=== PATIENT | female | born 1935 | race Caucasian/White ===

== ENCOUNTER 2021-06-13 18:32 | Inpatient (IN) | payer MEDICARE, MEDICAID, SELFPAY ==
[2021-06-13 18:43] VITALS: BP 173/140; PULSE 100; RESP 21; TEMP 37.6; O2SAT 91; BMI 38.5
--- NOTE | 2021-06-13 18:52 | XRR_ITS ---
PROCEDURE INFORMATION: Exam: XR Chest Exam date and time: 06/13/2021 6:52 PM Age: 85 years old Clinical indication: Dyspnea; Patient HX: SOB for 6 months TECHNIQUE: Imaging protocol: XR of the chest. Views: 1 view. COMPARISON: 1. CT abdomen pelvis wo con [id number] 05/23/2016 9:17 AM 2. CR XR KUB [id number] 08/19/2016 8:56 AM FINDINGS: Lungs: There is fine reticular and ground-glass opacity in the mid to lower lungs bilaterally. There is an 11 mm nodule in the right lower lung. The nodule corresponds to a calcified granuloma visible on the prior chest CT. Pleural spaces: There is no pleural effusion or pneumothorax. Heart/Mediastinum: There is mild enlargement of the cardiac silhouette. Bones/joints: There are healed bilateral rib fractures. XR/XR chest 1V portable [id number] IMPRESSION: 1. Bilateral pulmonary reticular and ground-glass opacity may be due to pulmonary edema, atypical infection and/or chronic interstitial lung disease. 2. Cardiac enlargement.
--- NOTE | 2021-06-13 18:53 | ECG_ITS ---
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 Measurements Intervals [place] Rate: 97 P: 142 CT: 173 QRS: -17 QRSD: 91 T: 136 QT: 298 QTc: 379 Interpretive Statements SINUS RHYTHM MODERATE T-WAVE ABNORMALITY, CONSIDER LATERAL ISCHEMIA [-0.1+ mV T-WAVE IN I/aVL/V5/V6] No previous ECG available for comparison Electronically Signed On 06-14-2021 8:50:04 CHIEF OF POLICE by Magan Jimenez M.D. [email or web address] [email or web address] [facility] center.[email or web address]/store/OM/[id number]
[2021-06-13 19:14] VITALS: PULSE 98; RESP 22; O2SAT 90
[2021-06-13] MEDS: ipratropium-albuterol 3 mL Neb INHALATION (19:14)
[2021-06-13 19:24] VITALS: PULSE 96; RESP 20; O2SAT 92
--- NOTE | 2021-06-13 19:24 | W.ED.SOB ---
HPI - SOB/Dyspnea General: Chief Complaint: Shortness of Breath/Dyspnea Stated Complaint: SOB Time Seen by Provider: 06/13/21 18:33 Source: patient History of Present Illness: HPI Narrative: 85-year-old female who [facility]. She complains of worsening shortness of breath despite oxygen and breathing treatments there. She was weak as well. She denies any significant chest pain. She has been coughing and wheezing. No fever. No diarrhea. No vomiting. She does not have any prior visits here, so no other information really available. MD elicited complaint: shortness of breath and cough Onset (ago): day(s) Context: recent illness Timing: progressively worsening Severity: moderate Exacerbating factors: lying flat and exertion Relieving factors: oxygen and bronchodilators Known history of: other (Unknown) Associated symptoms: Reports chest congestion, cough and nausea; Deny abdominal pain, chest pain, diaphoresis, dizziness, extremity pain, fever(s), hemoptysis or vomiting Treatment prior to arrival: oxygen Review of Systems Const: Denies: fever(s) or diaphoresis Eyes: Denies: blurry vision ENMT: Reports: throat pain Card: Denies: chest pain Resp: Reports: dyspnea, productive cough and chest congestion; Denies: hemoptysis GI: Reports: nausea; Denies: abdominal pain, vomiting or diarrhea : Denies: flank pain Musc: Denies: extremity pain Skin/Breast: Denies: rash Neuro: Denies: dizziness PFSH ED PFSH: Medical History (Updated 06/14/21 @ 01:18 by Ponce Sinclair DO) Chronic lymphocytic leukemia CKD stage 3 due to type 1 diabetes mellitus History of Parkinson's disease Personal history of DVT (deep vein thrombosis) Surgical History (Updated 06/13/21 @ 22:46 by Bahman Castro MD) History of hysterectomy History of thyroidectomy Family History (Updated 06/13/21 @ 22:46 by Bahman Csatro MD) Father Colon cancer Mother Stroke Social History (Updated 06/13/21 @ 22:47 by Bahman Castro MD) Smoking and tobacco status: never smoked Alcohol intake: never Substance/Drug Use: never Physical Exam Const: GENERAL APPEARANCE: cooperative, ill appearing and frail appearing NUTRITIONAL APPEARANCE: obese ORIENTATION/CONSCIOUSNESS: Yes awake, Yes oriented to person and Yes oriented to place HENMT: COMMON NORMALS: normocephalic, atraumatic and Normal external nose present HEAD & SCALP: normocephalic and atraumatic FACE & SINUS: normal facial exam NOSE: Normal external nose present and Normal nares present Eye: COMMON NORMALS: Equal, round and reactive pupils present and EOMs intact bilaterally PUPIL: Yes Equal, round and reactive pupils present Chest: COMMONS NORMALS: normal inspection of the chest Resp: EFFORT & INSPECTION: Yes tachypneic, Yes labored and Yes uses accessory muscles AUSCULTATION: wheezes Cardio: COMMON NORMALS: regular rhythm RATE: tachycardic RHYTHM: regular rhythm GI: COMMON NORMALS: Normal to inspection, nondistended, normoactive bowel sounds present and Soft to palpation INSPECTION: Yes abdominal distension PALPATION: Yes Soft to palpation Extremity: GENERAL: Yes edema (1+) Neuro: SENSORIUM/ORIENTATION: Yes oriented to person and Yes oriented to place Course Consultations: Consultation #1: aria Consultation #2: neli Vital Signs: Vital signs: Vital Signs Temperature 99.7 F H 06/13/21 18:43 Pulse Rate 96 06/13/21 19:24 Respiratory Rate 20 H 06/13/21 19:24 Blood Pressure 173/140 06/13/21 18:43 Pulse Oximetry 92 06/13/21 19:24 MDM - SOB/Dyspnea Medical Decision Making 85-year-old female with shortness of breath cough, and some lethargy. Saturations remained marginal on up to 6 L nasal cannula. She was therefore placed on high flow nasal cannula with improvement in oxygenation. Patient is a CLL history. Family member notes that white blood cell counts can run in the 60,000 range. Tonight, she has a white blood cell count of 192,000. Her creatinine is 1.7. BUN 39. She has bilateral groundglass opacities likely related to COVID-19 pneumonia, although blood cultures are pending, and she is covered with antibiotics. Her temperature here is 99.7. I spoke with oncology about the impressively high white blood cell count. They note that with a hemoglobin 11.2 and a platelet count of 173, increased white blood cell count is less of an issue. She has been treated with vancomycin and Zosyn here. With significant hypoxia, she will require admission. Lab Data : 06/13/21 19:45 06/13/21 19:45 Labs/Radiology: Radiology Impressions Chest X-Ray 06/13/21 18:52 IMPRESSION: 1. Bilateral pulmonary reticular and ground-glass opacity may be due to pulmonary edema, atypical infection and/or chronic interstitial lung disease. 2. Cardiac enlargement. Laboratory Results WBC 191.8 10^3/uL (4.0-10.0) H* 06/13/21 19:45 RBC 4.03 10^6/uL (4.1-5.3) L 06/13/21 19:45 Hgb 11.2 g/dL (11.5-15.3) L 06/13/21 19:45 Hct 39.4 % (37.0-47.0) 06/13/21 19:45 MCV 97.8 fl (81-99) 06/13/21 19:45 MCH 27.8 pg (28.0-34.0) L 06/13/21 19:45 MCHC 28.4 g/dL (30.0-36.0) L 06/13/21 19:45 RDW 17.7 % (12.1-15.1) H 06/13/21 19:45 Plt Count 173 10^3/cmm (130-400) 06/13/21 19:45 MPV 11.2 fL (7.4-10.4) H 06/13/21 19:45 Neut % (Auto) 4.5 % 06/13/21 19:45 Lymph % (Auto) 94.5 % 06/13/21 19:45 [place] % (Auto) 0.7 % 06/13/21 19:45 Eos % (Auto) 0.0 % 06/13/21 19:45 Baso % (Auto) 0.0 % 06/13/21 19:45 Neut # (Auto) 8.62 10^3/uL (1.8-7.7) H 06/13/21 19:45 Lymph # (Auto) 181.3 10^3/uL (0.8-4.8) H 06/13/21 19:45 [place] # (Auto) 1.3 10^3/uL (0.2-0.9) H 06/13/21 19:45 Eos # (Auto) 0.0 10^3/uL (0.0-0.8) 06/13/21 19:45 Baso # (Auto) 0.0 10^3/uL (0.0-0.1) 06/13/21: Nucleated RBC % (auto) 0 % 06/13/21: Nucleated RBCs # 0.0 /100WBC 06/13/21: D-Dimer 2.87 ug/mIFEU (0-0.59) H 06/13/21: Specimen Type Arterial 06/13/21: Sample Site Radial, left 06/13/21: ABG pH 7.48 (7.35-7.45) H 06/13/21: ABG pCO2 38.5 mmHg (35-45) 06/13/21 ABG pO2 50.8 mmHg (80.0-100.0) L 06/13/21: ABG HCO3 28.5 mmol/L (22-26) H 06/13/21: ABG Base Excess 4.7 mmol/L (-2.0-2.0) H 06/13/21: Jose De Jesus Test N/a 06/13/21: Hematocrit 33.9 % (37-47) L 06/13/21: Hgb O2 Saturation 89.6 % (95-100) L 06/13/21: Carboxyhemoglobin 0.9 %THgb (0.4-20.1) 06/13/21: Methemoglobin < 0.0 % (0.4-1.5) L 06/13/21: Total Hemoglobin 11.1 g/dL (12-16) L 06/13/21: O2 Delivery Device Nc 06/13/21: O2 Liters/Min 5.0 % 06/13/21: Case Operator ID [email or web address] 06/13/21 19: Sodium 135 mmol/L (136-145) L 06/13/21: Potassium 4.4 mmol/L (3.5-5.1) 06/13/21: Chloride 96 mmol/L (98-107) L 06/13/21: Carbon Dioxide 23 mmol/L (22-29) 02/13/22 19:45 Anion Gap 20.4 (5-19) H 06/13/21 19:45 BUN 39 mg/dL (8-23) H 06/13/21 19:45 Creatinine 1.7 mg/dL (0.5-0.9) H 06/13/21 19:45 GFR Calculation Not Reportable 06/13/21 19:45 Glucose 117 mg/dL (65-115) H 06/13/21 19:45 Calculated Osmolality 290 mOsm/kg (285-295) 06/13/21 19:45 Lactic Acid 1.3 mmol/L (0.5-2.2) 06/13/21 19:45 Calcium 8.1 mg/dL (8.5-10.5) L 06/13/21 19:45 Total Bilirubin 0.4 mg/dL (0.15-1.2) 06/13/21 19:45 AST 66 U/L (0-32) H 06/13/21 19:45 ALT 15 U/L (0-33) 06/13/21 19:45 Alkaline Phosphatase 87 IU/L (35-105) 06/13/21 19:45 Creatine Kinase 138 U/L (26-192) 06/13/21 19:45 Troponin T Baseline 51 ng/L (0-10) H 06/13/21 19:45 Troponin T 120 Minute 49.88 ng/L (0-10) H 06/13/21 21:49 Delta Troponin T -1.12 ABS# (0-10) L 06/13/21 21:49 C-Reactive Protein 145.3 mg/L (0.0-4.9) H 06/13/21 19:45 NT-Pro-B Natriuret Pep 826 pg/mL (0-450) H 06/13/21 19:45 Total Protein 5.2 g/dL (6.6-8.7) L 06/13/21 19:45 Albumin 3.6 g/dL (3.5-5.2) 06/13/21 19:45 Globulin 1.6 g/dL (1.3-4.6) 06/13/21 19:45 Procalcitonin 0.26 ng/mL (0-0.5) 06/13/21 19:45 Critical Care Time Critical Care Time: Critical Care Time: Yes Total Critical Care Time: 36 Attestation: This case had a high probability of a clinically significant, sudden, or life threatening deterioration of this patient's condition which required my full and direct attention, intervention and personal management. This is independent of any procedures performed. Discharge Plan Discharge Patient Disposition: Admitted As Inpatient Admit Provider: Bahman Castro Clinical Impression: Acute kidney injury superimposed on CKD, Pneumonia due to COVID-19 virus, Leukocytosis Condition: Stable Coding Level of Care Code ED Sports Marketing Coordinator for Chg Fwd Exam Comprehensive
[2021-06-13 19:40] LABS: ABG PCO2 38.5 mmHg (35-45); ABG PH Result 7.48 (7.35-7.45); Arterial Blood Gas Hematocrit 33.9 % (37-47); Base Excess ABG 4.7 mmol/L (-2.0-2.0); Blood Gas Sample Site Radial, left; Blood Gas Sample Type Arterial; Carboxyhemoglobin 0.9 %THgb (0.4-20.1); HCO3 ABG 28.5 mmol/L (22-26); HGB O2 Sat 89.6 % (95-100); Methemoglobin < 0.0 % (0.4-1.5); Oxygen Device NC; PO2 ABG 50.8 mmHg (80.0-100.0); Total Hemoglobin 11.1 g/dL (12-16)
[2021-06-13 20:00] LABS: Hematocrit 39.4 % (37.0-47.0); Hemoglobin 11.2 g/dL (11.5-15.3); Lymphocytes % 94.5 %; Mean Corpuscular HGB Conc 28.4 g/dL (30.0-36.0); Mean Corpuscular Hemoglobin 27.8 pg (28.0-34.0); Mean Corpuscular Volume 97.8 fl (81-99); Mean Platelet Volume 11.2 fL (7.4-10.4); Monocytes # 1.3 10^3/uL (0.2-0.9); Monocytes % 0.7 %; Neutrophils # 8.62 10^3/uL (1.8-7.7); Neutrophils % 4.5 %; Nucleated Red Blood Cells % 0 %; Platelet Count 173 10^3/cmm (130-400); Red Blood Count 4.03 10^6/uL (4.1-5.3); Red Cell Distribution Width 17.7 % (12.1-15.1)
[2021-06-13 20:13] LABS: D Dimer 2.87 ug/mIFEU (0-0.59)
[2021-06-13 20:18] LABS: Troponin(5th) Baseline 51 ng/L (0-10)
[2021-06-13 20:19] LABS: Lactic Sepsis W/Reflex 1.3 mmol/L (0.5-2.2)
[2021-06-13 20:28] LABS: NT Pro B Type Natriuretic Pept 826 pg/mL (0-450); Procalcitonin 0.26 ng/mL (0-0.5)
[2021-06-13 20:29] LABS: Lymphocytes # 181.3 10^3/uL (0.8-4.8)
[2021-06-13 20:31] LABS: White Blood Count 191.8 10^3/uL (4.0-10.0)
[2021-06-13 20:39] LABS: Alanine Aminotransferase 15 U/L (0-33); Albumin Level 3.6 g/dL (3.5-5.2); Alkaline Phosphatase 87 IU/L (35-105); Anion Gap 20.4 (5-19); Aspartate Amino Transferase 66 U/L (0-32); Blood Urea Nitrogen 39 mg/dL (8-23); C Reactive Protein 145.3 mg/L (0.0-4.9); Calcium 8.1 mg/dL (8.5-10.5); Carbon Dioxide 23 mmol/L (22-29); Chloride 96 mmol/L (98-107); Globulin 1.6 g/dL (1.3-4.6); Glucose 117 mg/dL (65-115); Osmolality Calculated 290 mOsm/kg (285-295); Potassium 4.4 mmol/L (3.5-5.1); Sodium 135 mmol/L (136-145); Total Bilirubin 0.4 mg/dL (0.15-1.2); Total Protein 5.2 g/dL (6.6-8.7)
[2021-06-13 20:49] LABS: Slide Review Slide Review Perform
--- NOTE | 2021-06-13 20:53 | ECG_ITS ---
[facility] Test Date: 2021-06-13 Pat Name: Haritha Shelton Department: Room: Gender: Female Sales Person: : 1935 Requested By: Ponce Leigh Order Number: [id number] Thad MD: Magan Jimenez M.D. Measurements Intervals [place] Rate: 95 P: 46 VT: 165 QRS: -14 QRSD: 93 T: 58 QT: 312 QTc: 393 Interpretive Statements SINUS RHYTHM MINIMAL VOLTAGE CRITERIA FOR LVH, CONSIDER NORMAL VARIANT [MEETS CRITERIA IN ONE OF: R(aVL), S(V1), R(V5), R(V5/V6)+S(V1)] Compared to ECG 06/13/2021 19:07:57 T-wave abnormality no longer present Possible ischemia no longer present Electronically Signed On 06-14-2021 9:01:00 DOCUMENTATION LEAD by Magan Jimenez M.D. [id number]
[2021-06-13] MEDS: piperacillin-tazobactam 4.5 GM in sodium chloride 0.9% (plus) 50 ML IV (21:52)
[2021-06-13 22:12] LABS: Troponin 5 2HR 49.88 ng/L (0-10)
[2021-06-13 22:15] LABS: Troponin 5 2HR Delta -1.12 ABS# (0-10)
[2021-06-13] MEDS: vancomycin 1,000 MG in sodium chloride 0.9% 250 ML 250 MG IV (22:28)
--- NOTE | 2021-06-13 22:42 | P.HP_ITS ---
Providers/Chief Complaint Primary Care Provider: TREVOR Provider Chief Complaint: SOB History of Present Illness Haritha Shelton is a 85 year old female with a past medical history of chronic lymphocytic leukemia, Parkinson's disease, CKD stage III, history of DVT and PE, history of hypothyroidism, age-related macular degeneration, who presents to [facility] due to shortness of breath, fevers, fatigue, malaise. Patient tells me that she tested positive for Covid last , at [facility], she progressively has been experiencing increasing shortness of breath, they have been trying steroids as outpatient, increasing fatigue, malaise, this morning she experience increasing worsening shortness of breath, shortness of breath with exertion, productive cough, fevers as high as 101, loss of taste, no chest pain, no palpitations, Review of Systems Const: Reports: fever(s), chills, fatigue and malaise ENMT: Denies: nasal congestion Card: Reports: lightheadedness; Denies: chest pain, palpitations or edema Resp: Reports: dyspnea and productive cough; Denies: non-productive cough or wheezing GI: Denies: abdominal pain, nausea, vomiting, hematemesis, diarrhea, constipation, hematochezia or melena : Denies: flank pain, dysuria or urinary frequency Skin/Breast: Denies: rash Neuro: Denies: dizziness Psych: Denies: anxiety or depression Endo: Denies: polyuria Medications/Allergies Allergies Allergy/AdvReac Type Severity Reaction Status Date / Time hydrocodone Allergy ADR-Itching Verified 06/13/21 20:03 PFSH Acute PFSH: Medical History (Updated 06/13/21 @ 22:48 by Bahman Castro MD) Chronic lymphocytic leukemia CKD stage 3 due to type 1 diabetes mellitus History of Parkinson's disease Personal history of DVT (deep vein thrombosis) Surgical History (Updated 06/13/21 @ 22:46 by Bahman Castro MD) History of hysterectomy History of thyroidectomy Family History (Updated 06/13/21 @ 22:46 by Bahman Castro MD) Father Colon cancer Mother Stroke Social History (Updated 06/13/21 @ 22:47 by Bahman Castro MD) Smoking and tobacco status: never smoked Alcohol intake: never Substance/Drug Use: never Vitals/I&O/Wt Last Vital Signs Temp 99.7 F H 06/13/21 18:43 Pulse 96 06/13/21 19:24 Resp 20 H 06/13/21 19:24 BP 173/140 06/13/21 18:43 Pulse Ox 92 06/13/21 19:24 06/13/21 06/13/21 06/13/21 06:59 14:59 22:59 Intake Total 50 / 50 Balance 50 / 50 Weight last 48 hrs Weight 108.409 kg Physical Exam Const: COMMON NORMALS: no acute distress and patient oriented x3 HENMT: COMMON NORMALS: normocephalic HEAD & SCALP: normocephalic Neck/C-Spine: COMMON NORMALS: no JVD Resp: COMMON NORMALS: normal respiratory effort, No retractions, No use of accessory muscles and clear to auscultation bilaterally AUSCULTATION: clear to auscultation bilaterally Cardio: COMMON NORMALS: no JVD, regular rate, regular rhythm, S1 normal heart sound present and S2 normal heart sound present RATE: regular rate RHYTHM: regular rhythm HEART SOUNDS: S1 normal heart sound present and S2 normal heart sound present GI: COMMON NORMALS: Normal to inspection, nondistended, normoactive bowel sounds present, Soft to palpation, non-tender, No hepatosplenomegaly present, no masses and no bruits PALPATION: Yes Soft to palpation and Yes No hepatosplenomegaly present Extremity: COMMON NORMALS: capillary refill normal, no clubbing, cyanosis or edema, no calf tenderness and no pedal edema Neuro: COMMON NORMALS: patient oriented x3 Psych: COMMON NORMALS: mental status grossly normal Data : 06/13/21 19:45 06/13/21 19:45 Micro: Microbiology 06/13/21 19:45 Blood Culture - Preliminary Blood SPECIMEN COLLECTED 06/13/21 19:45 Blood Culture - Preliminary Blood SPECIMEN COLLECTED A&P Assessment and plan (1) Pneumonia due to COVID-19 virus: Status: Acute (2) Leukocytosis: Status: Acute (3) Acute kidney injury superimposed on CKD: Status: Acute (4) NSTEMI (non-ST elevated myocardial infarction): Status: Acute Plan COVID-19 pneumonia -Sputum cultures, blood cultures, urine bacterial antigens -Monitor respiratory status, on 5 L -Remdesivir day 1 of 5, GFR roughly 30, monitor -Decadron day 1 of 5 -Vitamin C, zinc, vitamin D - ipratropium, budesonide -D-dimer elevated, has a personal history of DVTs and PEs, cannot do CT angiogram given elevated creatinine of 1.7, will do venous ultrasound for DVT, start heparin drip -Chest x-ray shows bilateral pulmonary reticular and groundglass opacities, does have elevated leukocytosis, likely secondary to CLL, will start broad-spectrum antibiotic therapy vancomycin, Zosyn -Incentive spirometer, flutter valve -Full code -Heparin drip for DVT prophylaxis Leukocytosis -WBC 191.18, 05/13/2021 white blood cell count was 107.6 -Has been on multiple rounds of steroids -Neutrophilic, and monocytosis, but primarily lymphocytosis -Likely secondary to underlying CLL -However certainly there is a possibility of underlying leukostasis and associa josseline pulmonary edema -COVID-19 certainly makes diagnosis difficult, in addition would make treatment difficult -ER physician spoke to Dr. Aguillon, advised currently no treatment necessary as hemoglobin and platelet count are within normal limits -We will continue to monitor CBC, monitor for symptomatology Parkinson's disease, continue home Sinemet Hypothyroidism, continue home levothyroxine ROSE on CKD, baseline creatinine unknown, creatinine 1.7, monitor for now Elevated troponins, likely secondary to COVID-19 pneumonia, monitor, telemetry monitoring - Attestations Medical Necessity Statement*: Patient requires hospitalization for COVID-19 pneumonia, inpatient, greater than 2 midnights Coding Level of Care Code Acute Mucker [place] for [facility] Diagnoses Pneumonia due to COVID-19 virus U07.1; J12.82 Leukocytosis D72.829 Acute kidney injury superimposed on CKD N17.9; N18.9 NSTEMI (non-ST elevated myocardial infarction) I21.4
[2021-06-13 22:56] LABS: Creatine Phosphokinase 138 U/L (26-192)
[2021-06-14] VITALS (15 sets, daily range): BP systolic 137–175; BP diastolic 59–77; PULSE 72–95; RESP 18–28; TEMP 36.6–37.1; O2SAT 88–97
--- NOTE | 2021-06-14 00:53 | ECG_ITS ---
[facility] Test Date: 2021-06-14 Pat Name: Haritha Shelton Department: Room: 252 Gender: Female Anesthesia Tech: : 1935 Requested By: Ponce Leigh Order Number: [id number] Thad MD: Magan Jimenez M.D. Measurements Intervals [place] Rate: 80 P: 56 [place]: 170 QRS: -8 QRSD: 93 T: 46 QT: 351 QTc: 405 Interpretive Statements SINUS RHYTHM MINIMAL VOLTAGE CRITERIA FOR LVH, CONSIDER NORMAL VARIANT [MEETS CRITERIA IN ONE OF: R(aVL), S(V1), R(V5), R(V5/V6)+S(V1)] Compared to ECG 06/13/2021 21:09:28 No significant changes Electronically Signed On 06-14-2021 8:56:47 FURNACE PACKER by Magan Jimenez M.D. [id number]
--- NOTE | 2021-06-14 00:56 | USCV_ITS ---
Haritha Shelton Age: 85 Gender: F : 1935 Exam Date: 06/14/2021 06:48 Ordering Phys: Bahman Castro MD Technologist: [place] [facility] [place]: ? DVT HISTORY: BED stasis. PROCEDURES: Bilaterally, the common femoral, superficial femoral, profunda femoral, popliteal, posterior tibial, greater saphenous veins, and the peroneal trunk were identified and interrogated in the standard fashion. These veins were found to be easily compressible with spontaneous blood flow. FINDINGS: Normal 2-D Doppler and augmentation and compressibility throughout the lower extremity venous structures. Additional imaging through the proximal calf veins also reveals no thrombus. Limited evaluation of the greater saphenous vein is patent with no thrombus. CONCLUSIONS No DVT bilateral lower extremities. Dr. Tere Crawford DO (Electronically Signed) Final Date: 14 June 2021 10:18 S
[2021-06-14 02:21] LABS: Troponin 5 6HR 39.47 ng/L (0-10)
--- NOTE | 2021-06-14 02:25 | PC.PHAR ---
Pharmacokinetic dosing service Date: 06/14/21 Time: 020 Objective: Patient: Haritha Shelton Floor: 252-2 Age: 85 yo Serum creatinine: 1.7 mg/dL Height: 64.8 Inches Weight (kg): 108.409 Diagnosis: Relevant medical/social history: Cultures and sensitivities: Other labs: Assessment: IBW (kg): 56.54 Dosing wt(kg): 108.409 Estimated Creatinine clearance (ml/min): 21.6 CRCL method: Cockcroft and Gault using ibw(default). Drug selected: Vancomycin Loading dose (mg): 0 Vd (liters): 97.6 (factor used: 0.9 L/kg) Minh (hr-1): 0.022 Half life (hrs): 31.51 Recommended dose: 1500 mg Interval: 36 hrs Infusion time (hrs): 1.5 Predicted peak (mcg/mL): 27.6 Predicted trough (mcg/mL): 12.92 Total body weight is being used for vancomycin dosing. Renal function is stable [ ] /unstable [ ] Recommendations: Give Vancomycin 1500 mg q 36 hrs with an expected Cpeak of 27.6 mcg/ml and an expected Ctrough of 12.92 mcg/ml Renal dosing of other antibiotics (review renal dosing of other medications and list guidelines here): Thank you for the consult, will continue to follow. Signature: Светлана Vázquez [facility]
[2021-06-14] MEDS: remdesivir 200 MG in sodium chloride 0.9% (100 ml) 60 ML 100 MG IV (03:05)
[2021-06-14 03:23] LABS: Basophils # 0.1 10^3/uL (0.0-0.1); Basophils % 0.1 %; Hematocrit 35.3 % (37.0-47.0); Hemoglobin 10.4 g/dL (11.5-15.3); Lymphocytes % 93.6 %; Mean Corpuscular HGB Conc 29.5 g/dL (30.0-36.0); Mean Corpuscular Hemoglobin 28.7 pg (28.0-34.0); Mean Corpuscular Volume 97.2 fl (81-99); Mean Platelet Volume 10.7 fL (7.4-10.4); Monocytes # 1.1 10^3/uL (0.2-0.9); Monocytes % 0.8 %; Neutrophils # 8.13 10^3/uL (1.8-7.7); Neutrophils % 5.2 %; Nucleated Red Blood Cells % 0 %; Platelet Count 155 10^3/cmm (130-400); Red Blood Count 3.63 10^6/uL (4.1-5.3); Red Cell Distribution Width 17.2 % (12.1-15.1)
[2021-06-14 03:31] LABS: INR 1.13 (0.8-1.2)
[2021-06-14 03:32] LABS: Partial Thromboplastin Time 26.8 SECONDS (23.9-36.7)
[2021-06-14 03:34] LABS: D Dimer 2.39 ug/mIFEU (0-0.59)
[2021-06-14 03:47] LABS: NT Pro B Type Natriuretic Pept 601 pg/mL (0-450); Procalcitonin 0.22 ng/mL (0-0.5)
[2021-06-14 03:56] LABS: Alanine Aminotransferase 10 U/L (0-33); Albumin Level 3.3 g/dL (3.5-5.2); Alkaline Phosphatase 77 IU/L (35-105); Aspartate Amino Transferase 46 U/L (0-32); Blood Urea Nitrogen 37 mg/dL (8-23); Carbon Dioxide 25 mmol/L (22-29); Chloride 98 mmol/L (98-107); Globulin 1.4 g/dL (1.3-4.6); Glucose 202 mg/dL (65-115); Magnesium 2.2 mg/dL (1.7-2.3); Osmolality Calculated 292 mOsm/kg (285-295); Phosphorus 2.6 mg/dL (2.5-4.5); Sodium 134 mmol/L (136-145); Total Bilirubin 0.4 mg/dL (0.15-1.2); Total Protein 4.7 g/dL (6.6-8.7)
[2021-06-14 03:58] LABS: Creatine Phosphokinase 90 U/L (26-192)
[2021-06-14 04:05] LABS: Anion Gap 15.4 (5-19); Potassium 4.4 mmol/L (3.5-5.1)
[2021-06-14 04:10] LABS: Lymphocytes # 141.4 10^3/uL (0.8-4.8); White Blood Count 151.1 10^3/uL (4.0-10.0)
[2021-06-14 04:11] LABS: Slide Review Slide Review Perform
--- NOTE | 2021-06-14 04:20 | PC.NURSE ---
Called critical WBC to Dr. Hinton-no new orders at this time as result has improved and is expected. Also discussed heparin dosing and baseline PTT of 26.8 New order do not give heparin bolus just start infusion at 30ml/hr and recheck PTT in 6 hours.
[2021-06-14] MEDS: heparin drip 25,000 UNIT/500 ML PREMIX 30.36 UNIT IV (04:26)
[2021-06-14] MEDS: levothyroxine 100 mcg Tablet PO (05:36)
[2021-06-14] MEDS: piperacillin-tazobactam 3.375 GM in sodium chloride 0.9% (plus) 100 ML IV ×3 (05:37→21:27)
[2021-06-14 06:35] LABS: Influenza A by IFA Negative (Negative); Influenza B by IFA Negative (Negative)
[2021-06-14 07:56] LABS: Adenovirus Not Detected (NOT DETECT); Chlamydia Pneumoniae Not Detected (NOT DETECT); Coronavirus 229E,HKU1,NL63,OC4 Not Detected (NOT DETECT); Human Metapneumovirus Not Detected (NOT DETECT); Human Rhinovirus/Enterovirus Not Detected (NOT DETECT); Influenza A Not Detected (NOT DETECT); Influenza A H1 Not Detected (NOT DETECT); Influenza A H1-2009 Not Detected (NOT DETECT); Influenza A H3 Not Detected (NOT DETECT); Influenza B Not Detected (NOT DETECT); Mycoplasma Pneumoniae Not Detected (NOT DETECT); Parainfluenza Virus Type 1 Not Detected (NOT DETECT); Parainfluenza Virus Type 2 Not Detected (NOT DETECT); Parainfluenza Virus Type 3 Not Detected (NOT DETECT); Parainfluenza Virus Type 4 Not Detected (NOT DETECT); Respiratory Syncytial Virus A Not Detected (NOT DETECT); Respiratory Syncytial Virus B Not Detected (NOT DETECT); SARS-COV-2 Detected (NOT DETECT)
[2021-06-14] MEDS: ipratropium-albuterol 3 mL Neb INHALATION ×4 (08:06→19:41)
[2021-06-14] MEDS: budesonide 0.5 mg/2 mL Neb INHALATION ×2 (08:06→19:41)
[2021-06-14] MEDS: gabapentin 100 mg Capsule 200 MG PO ×3 (09:49→21:18)
[2021-06-14] MEDS: zinc gluconate 50 mg Tablet PO (09:49)
[2021-06-14] MEDS: carbidopa-levodopa ER 50-200mg Tablet 1 EACH PO ×2 (09:49→17:50)
[2021-06-14] MEDS: ascorbic acid 500 mg Tablet PO ×2 (09:50→17:50)
[2021-06-14] MEDS: famotidine 20 mg Tablet PO ×2 (09:50→17:50)
[2021-06-14] MEDS: dexamethasone 10 mg/mL INJ 6 MG IVP (09:50)
--- NOTE | 2021-06-14 10:09 | PM.PN ---
Subjective Subjective: Patient was seen and examined this morning, says that her fatigue has improved, her other vitals and labs have been reviewed. Medications: Medication Review Details: Generic Name Dose Route Start Last Admin Trade Name Liya PRN Reason Stop Dose Admin Albuterol/Ipratrop ium 3 ml 06/14/21 08:00 06/14/21 08:06 Ipratropium-Albu terol 3 Ml Neb INHALATION 3 ml QID.RESPIRATORY S CH Administration Ascorbic Acid 500 mg 06/14/21 09:00 06/14/21 09:50 Ascorbic Acid 50 0 Mg Tablet PO 500 mg BID TREVOR Administration Budesonide 0.5 mg 06/14/21 08:00 06/14/21 08:06 Budesonide 0.5 M g/2 Ml Neb INHALATION 0.5 mg BID.RESPIRATORY S CH Administration Carbidopa/Levodopa 1 each 06/14/21 09:00 06/14/21 09:49 Carbidopa-Levodo pa Er 50-200mg Tab let PO 1 each BID TREVOR Administration Dexamethasone 6 mg 06/14/21 08:00 06/14/21 09:50 Dexamethasone 10 Mg/Ml Inj IVP 6 mg Q24H TREVOR Administration Famotidine 20 mg 06/14/21 09:00 06/14/21 09:50 Famotidine 20 Mg Tablet PO 20 mg BID TREVOR Administration Gabapentin 200 mg 06/14/21 09:00 06/14/21 09:49 Gabapentin 100 M g Capsule PO 200 mg TID TREVOR Administration Piperacillin Sod/T azobactam 100 mls @ 25 mls/ hr 06/14/21 06:00 06/14/21 05:37 Sod 3.375 gm/ So dium Chloride IV 12.5 mls/hr Q8H TREVOR Administration Protocol Levothyroxine Sodi um 100 mcg 06/14/21 06:00 06/14/21 05:36 Levothyroxine 10 0 Mcg Tablet PO 100 mcg QAM TREVOR Administration Vitamin D 1,000 unit 06/14/21 09:00 06/14/21 09:51 Cholecalciferol (Vitamin D3) 1,000 Unit Tablet PO Not Given DAILY TREVOR Zinc Gluconate 50 mg 06/14/21 09:00 06/14/21 09:49 Zinc Gluconate 5 0 Mg Tablet PO 50 mg DAILY TREVOR Administration Vitals/I&O/Wt Last Vital Signs Temp 98.1 F 06/14/21 08:00 Pulse 78 06/14/21 08:25 Resp 22 H 06/14/21 08:06 BP 175/73 06/14/21 08:00 Pulse Ox 91 06/14/21 08:06 06/13/21 06/14/21 06/14/21 22:59 06:59 14:59 Intake Total 50 / 50 760 / 810 Balance 50 / 50 760 / 810 Weight last 48 hrs Weight 108.409 kg Physical Exam Const: COMMON NORMALS: patient oriented x3 HENMT: COMMON NORMALS: normocephalic, atraumatic, hearing grossly normal bilaterally and external ears normal HEAD & SCALP: normocephalic and atraumatic EXTERNAL EAR: Yes external ears normal Eye: COMMON NORMALS: no scleral icterus GENERAL EYE: appearance normal, both eyes and all related structures Chest: COMMONS NORMALS: normal inspection of the chest and normal palpation of entire chest wall CHEST: Yes Symmetrical chest wall rise Resp: EFFORT & INSPECTION: Yes symmetric chest movement OTHER: B/L Expiratory whezzing Cardio: COMMON NORMALS: regular rate, regular rhythm, S1 normal heart sound present, S2 normal heart sound present, No gallops present (Cardio), No murmurs present (Cardio), No rub (Cardio) and Peripheral pulses 2+ throughout RATE: regular rate RHYTHM: regular rhythm HEART SOUNDS: S1 normal heart sound present and S2 normal heart sound present PERIPHERAL PULSES: Peripheral pulses 2+ throughout GI: COMMON NORMALS: Normal to inspection, nondistended, normoactive bowel sounds present, Soft to palpation, non-tender, No hepatosplenomegaly present and no masses AUSCULTATION: Yes normoactive bowel sounds PALPATION: Yes Soft to palpation and Yes No hepatosplenomegaly present RECTAL EXAM: deferred Extremity: COMMON NORMALS: no clubbing, cyanosis or edema and no pedal edema Neuro: COMMON NORMALS: patient oriented x3 Data : 06/14/21 03:10 06/14/21 03:10 Micro: Microbiology 06/13/21 19:45 Blood Culture - Preliminary Blood SPECIMEN COLLECTED 06/13/21 19:45 Blood Culture - Preliminary Blood SPECIMEN COLLECTED A&P Assessment and plan (1) Pneumonia due to COVID-19 virus: Status: Acute (2) Leukocytosis: Status: Acute (3) Acute kidney injury superimposed on CKD: Status: Acute (4) NSTEMI (non-ST elevated myocardial infarction): Status: Acute Plan COVID-19 pneumonia -Sputum cultures, blood cultures, urine bacterial antigens -Monitor respiratory status, on 5 L -Remdesivir day 1 of 5, GFR roughly 30, monitor -Decadron day 1 of 5 -Vitamin C, zinc, vitamin D - ipratropium, budesonide -D-dimer elevated, has a personal history of DVTs and PEs, cannot do CT angiogram given elevated creatinine of 1.7, will do venous ultrasound for DVT, -On Therapeutic Lovenox -Chest x-ray shows bilateral pulmonary reticular and groundglass opacities, does have elevated leukocytosis, likely secondary to CLL, will start broad-spectrum antibiotic therapy vancomycin, Zosyn -Incentive spirometer, flutter valve -On therapeutic Lovenox Leukocytosis -WBC 191.18, 05/13/2021 white blood cell count was 107.6 -Has been on multiple rounds of steroids -Neutrophilic, and monocytosis, but primarily lymphocytosis -Likely secondary to underlying CLL -However certainly there is a possibility of underlying leukostasis and associated pulmonary edema -COVID-19 certainly makes diagnosis difficult, in addition would make treatment difficult -ER physician spoke to Dr. Aguillon, advised currently no treatment necessary as hemoglobin and platelet count are within normal limits -We will continue to monitor CBC, monitor for symptomatology Parkinson's disease, continue home Sinemet Hypothyroidism, continue home levothyroxine ROSE on CKD, baseline creatinine unknown, creatinine 1.7, monitor for now Elevated troponins, likely secondary to COVID-19 pneumonia, monitor, telemetry monitoring - Attestations Medical Necessity Statement*: Patient is to be in hospital for management of Covid pneumonia. Time Spent in Patient Care: Greater than 35 minutes (>than 50% of time spent in counselling and/or direct pt care on unit). 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
[2021-06-14] MEDS: enoxaparin 120 mg/0.8 mL Syringe 110 MG SUBCUT ×2 (11:47→22:31)
[2021-06-14] MEDS: remdesivir 100 MG in sodium chloride 0.9% (100 ml) 80 ML IV (18:42)
[2021-06-14] MEDS: vancomycin 1,500 MG/300 ML PIGGYBACK 200 MG IV (21:18)
[2021-06-15] VITALS (15 sets, daily range): BP systolic 118–160; BP diastolic 58–78; PULSE 69–95; RESP 18–30; TEMP 36.4–38.4; O2SAT 89–98
[2021-06-15] MEDS: benzonatate 100 mg Capsule PO (01:22)
[2021-06-15] MEDS: FUROsemide 10 mg/mL SDV 4mL 40 MG IVP ×2 (03:15→13:38)
--- NOTE | 2021-06-15 03:56 | PC.RESP ---
Paged STAT to bedside, pt in moderate resp distress; MD notified/orderobtained/NIV initiated. Pt on AVAPS r18, 600 vt, p10, PSV 20-30, Fio2 100%, SAO2 93%. RN and MD @ bedside.
--- NOTE | 2021-06-15 04:32 | PC.NURSE ---
Addendum entered by Danyelle Campbell LPN 06/15/21 04:41: Event took place at [phone]. Original Note: This nurse was called to the room by patient [id number] due to concerns with the patient's breathing. Patient had been coughing and trying to clear sputum. Patient was suctioned. Patient seemed to have an increased workload while breathing. Respiratory was called to evaluate the patient and give a breathing treatment. Patient's lungs sounded wet and slightly restricted. VS signs were obtained, T 100.4 axillary, HR 109, RR 32-34, BP 160/61, O2 89-90% saturation after being increased to 50L at 80%FiO2. Dr. Arrington was notified, orders were put in and elizondo catheter was placed. Respiratory placed patient on BiPap.
[2021-06-15] MEDS: piperacillin-tazobactam 3.375 GM in sodium chloride 0.9% (plus) 100 ML IV ×3 (05:45→22:15)
[2021-06-15 06:42] LABS: Hematocrit 42.3 % (37.0-47.0); Hemoglobin 11.9 g/dL (11.5-15.3); Lymphocytes % 94.5 %; Mean Corpuscular HGB Conc 28.1 g/dL (30.0-36.0); Mean Corpuscular Hemoglobin 28.3 pg (28.0-34.0); Mean Corpuscular Volume 100.5 fl (81-99); Mean Platelet Volume 10.6 fL (7.4-10.4); Monocytes # 0.5 10^3/uL (0.2-0.9); Monocytes % 0.3 %; Neutrophils # 9.27 10^3/uL (1.8-7.7); Neutrophils % 4.9 %; Nucleated Red Blood Cells % 0 %; Platelet Count 178 10^3/cmm (130-400); Red Blood Count 4.21 10^6/uL (4.1-5.3); Red Cell Distribution Width 18.8 % (12.1-15.1)
[2021-06-15 06:53] LABS: INR 1.26 (0.8-1.2)
[2021-06-15 07:10] LABS: NT Pro B Type Natriuretic Pept 1152 pg/mL (0-450); Procalcitonin 0.21 ng/mL (0-0.5)
[2021-06-15 07:20] LABS: D Dimer 2.03 ug/mIFEU (0-0.59)
[2021-06-15 07:21] LABS: Alanine Aminotransferase 12 U/L (0-33); Alkaline Phosphatase 74 IU/L (35-105); Aspartate Amino Transferase 39 U/L (0-32); Blood Urea Nitrogen 36 mg/dL (8-23); Calcium 9.3 mg/dL (8.5-10.5); Carbon Dioxide 23 mmol/L (22-29); Chloride 99 mmol/L (98-107); Creatine Phosphokinase 76 U/L (26-192); Globulin 2.8 g/dL (1.3-4.6); Glucose 98 mg/dL (65-115); Magnesium 2.3 mg/dL (1.7-2.3); Osmolality Calculated 288 mOsm/kg (285-295); Phosphorus 2.1 mg/dL (2.5-4.5); Sodium 135 mmol/L (136-145); Total Bilirubin 0.5 mg/dL (0.15-1.2); Total Protein 5.8 g/dL (6.6-8.7)
[2021-06-15 07:29] LABS: Anion Gap 17.4 (5-19); Potassium 4.4 mmol/L (3.5-5.1)
--- NOTE | 2021-06-15 07:30 | XRR_ITS ---
PROCEDURE INFORMATION: Exam: XR Chest Exam date and time: 06/15/2021 7:30 AM Age: 85 years old Clinical indication: Condition or disease; Lung condition and disease; Pneumonia; Additional info: Pna TECHNIQUE: Imaging protocol: XR of the chest. Views: 1 view. COMPARISON: CR (CHEST, ) 06/13/2021 7:03 PM FINDINGS: Lungs: COPD, interstitial disease, chronic granulomatous disease, and worsening bilateral airspace disease. Pleural spaces: Right pleural thickening and/or small effusion. Heart/Mediastinum: Cardiac silhouette upper limits of normal in size. Vasculature: Calcification of the thoracic aorta. Bones/joints: Osteopenia, degenerative change, and old rib fractures. XR/XR chest 1V portable [id number] IMPRESSION: COPD, interstitial disease, chronic granulomatous disease, and worsening bilateral airspace disease.
[2021-06-15 07:52] LABS: Slide Review Slide Review Perform
[2021-06-15 07:53] LABS: White Blood Count 186.3 10^3/uL (4.0-10.0)
--- NOTE | 2021-06-15 08:11 | PC.NURSE ---
Notifed Dr. Walsh of critical WBC 186.3.
[2021-06-15] MEDS: ipratropium-albuterol 3 mL Neb INHALATION ×4 (08:18→19:51)
[2021-06-15] MEDS: budesonide 0.5 mg/2 mL Neb INHALATION ×2 (08:18→19:51)
[2021-06-15] MEDS: dexamethasone 10 mg/mL INJ 6 MG IVP (08:28)
[2021-06-15] MEDS: gabapentin 100 mg Capsule 200 MG PO ×2 (08:29→16:35)
[2021-06-15] MEDS: carbidopa-levodopa ER 50-200mg Tablet 1 EACH PO ×2 (08:29→18:05)
[2021-06-15] MEDS: cholecalciferol (vitamin D3) 1,000 unit Tablet 1000 UNIT PO (08:29)
[2021-06-15] MEDS: ascorbic acid 500 mg Tablet PO ×2 (08:29→18:04)
[2021-06-15] MEDS: zinc gluconate 50 mg Tablet PO (08:29)
[2021-06-15] MEDS: famotidine 20 mg Tablet PO ×2 (08:29→18:04)
[2021-06-15] MEDS: enoxaparin 120 mg/0.8 mL Syringe 110 MG SUBCUT ×2 (13:39→22:16)
--- NOTE | 2021-06-15 16:28 | P.PN_ITS ---
Subjective Subjective: Patient was seen and examined this morning, she had a rough last night, requiring her to be placed on BiPAP. Since the morning she has been on heated high flow 50% FiO2 35 L/min and maintaining saturation above 90, she is also having fevers, noted T-max: 101.1. AM Chest x-ray has shown worsening of bilateral infiltrates. Medications: Medication Review Details: Generic Name Dose Route Start Last Admin Trade Name Juliánq PRN Reason Stop Dose Admin Albuterol/Ipratrop ium 3 ml 06/14/21 08:00 06/14/21 08:06 Ipratropium-Albu terol 3 Ml Neb INHALATION 3 ml QID.RESPIRATORY S CH Administration Ascorbic Acid 500 mg 06/14/21 09:00 06/14/21 09:50 Ascorbic Acid 50 0 Mg Tablet PO 500 mg BID TREVOR Administration Budesonide 0.5 mg 06/14/21 08:00 06/14/21 08:06 Budesonide 0.5 M g/2 Ml Neb INHALATION 0.5 mg BID.RESPIRATORY S CH Administration Carbidopa/Levodopa 1 each 06/14/21 09:00 06/14/21 09:49 Carbidopa-Levodo pa Er 50-200mg Tab let PO 1 each BID TREVOR Administration Dexamethasone 6 mg 06/14/21 08:00 06/14/21 09:50 Dexamethasone 10 Mg/Ml Inj IVP 6 mg Q24H TREVOR Administration Famotidine 20 mg 06/14/21 09:00 06/14/21 09:50 Famotidine 20 Mg Tablet PO 20 mg BID TREVOR Administration Gabapentin 200 mg 06/14/21 09:00 06/14/21 09:49 Gabapentin 100 M g Capsule PO 200 mg TID TREVOR Administration Piperacillin Sod/T azobactam 100 mls @ 25 mls/ hr 06/14/21 06:00 06/14/21 05:37 Sod 3.375 gm/ So dium Chloride IV 12.5 mls/hr Q8H TREVOR Administration Protocol Levothyroxine Sodi um 100 mcg 06/14/21 06:00 06/14/21 05:36 Levothyroxine 10 0 Mcg Tablet PO 100 mcg QAM TREVOR Administration Vitamin D 1,000 unit 06/14/21 09:00 06/14/21 09:51 Cholecalciferol (Vitamin D3) 1,000 Unit Tablet PO Not Given DAILY TREVOR Zinc Gluconate 50 mg 06/14/21 09:00 06/14/21 09:49 Zinc Gluconate 5 0 Mg Tablet PO 50 mg DAILY TREVOR Administration Vitals/I&O/Wt Last Vital Signs Temp 100.2 F H 06/15/21 12:00 Pulse 74 06/15/21 15:00 Resp 20 H 06/15/21 15:00 BP 134/67 06/15/21 12:00 Pulse Ox 96 06/15/21 15:00 06/15/21 06/15/21 06/15/21 06:59 14:59 22:59 Intake Total 520 / 1740 100 / 100 Output Total 240 / 240 1500 / 1500 Balance 280 / 1500 -1400 / -1400 Weight last 48 hrs Weight 108.409 kg Physical Exam Const: COMMON NORMALS: patient oriented x3 HENMT: COMMON NORMALS: normocephalic, atraumatic, hearing grossly normal bilaterally and external ears normal HEAD & SCALP: normocephalic and atraumatic EXTERNAL EAR: Yes external ears normal Eye: COMMON NORMALS: no scleral icterus GENERAL EYE: appearance normal, both eyes and all related structures Chest: COMMONS NORMALS: normal inspection of the chest and normal palpation of entire chest wall CHEST: Yes Symmetrical chest wall rise Resp: EFFORT & INSPECTION: Yes symmetric chest movement OTHER: B/L Expiratory whezzing Cardio: COMMON NORMALS: regular rate, regular rhythm, S1 normal heart sound present, S2 normal heart sound present, No gallops present (Cardio), No murmurs present (Cardio), No rub (Cardio) and Peripheral pulses 2+ throughout RATE: regular rate RHYTHM: regular rhythm HEART SOUNDS: S1 normal heart sound present and S2 normal heart sound present PERIPHERAL PULSES: Peripheral pulses 2+ throughout GI: COMMON NORMALS: Normal to inspection, nondistended, normoactive bowel sounds present, Soft to palpation, non-tender, No hepatosplenomegaly present and no masses AUSCULTATION: Yes normoactive bowel sounds PALPATION: Yes Soft to palpation and Yes No hepatosplenomegaly present RECTAL EXAM: deferred Extremity: COMMON NORMALS: no clubbing, cyanosis or edema and no pedal edema Neuro: COMMON NORMALS: patient oriented x3 Urinary Catheter Management: Quezada: Cath Placed During This Visit: yes Reason for Continuing Indwelling Catheter: Accurate Measurement of Urinary Output in Critically Ill Patients Urinary Catheter Date of Insertion: 06/15/21 Urinary Catheter Time of Insertion: 02:30 Data : 06/15/21 06:14 06/15/21 06:14 Micro: Microbiology 06/15/21 03:41 Bacterial Antigens - Final Urine,Clean Catch 06/15/21 03:41 Legionella Urinary Antigen - Final Urine Catheterized 06/13/21 19:45 Blood Culture - Preliminary Blood NEGATIVE TO DATE 06/13/21 19:45 Blood Culture - Preliminary Blood NEGATIVE TO DATE 06/14/21 06:10 MRSA Culture - Final Nose A&P Assessment and plan (1) Pneumonia due to COVID-19 virus: Status: Acute (2) Leukocytosis: Status: Acute (3) Acute kidney injury superimposed on CKD: Status: Acute (4) NSTEMI (non-ST elevated myocardial infarction): Status: Acute (5) Acute respiratory failure with hypoxia: Status: Acute Plan COVID-19 pneumonia -Sputum cultures, blood cultures, urine bacterial antigens -Monitor respiratory status, -Remdesivir day 1 of , GFR roughly 30, monitor -Decadron day 1 of 5 -S/p 1 dose of tocilizumab ( 06/15 ) -Vitamin C, zinc, vitamin D - ipratropium, budesonide -D-dimer elevated, has a personal history of DVTs and PEs, cannot do CT angiogram given elevated creatinine of 1.7, will do venous ultrasound for DVT, -On Therapeutic Lovenox -Chest x-ray shows bilateral pulmonary reticular and groundglass opacities, does have elevated leukocytosis, likely secondary to CLL, will start broad-spectrum antibiotic therapy vancomycin, Zosyn -Incentive spirometer, flutter valve -On therapeutic Lovenox Leukocytosis -WBC 191.18, 05/13/2021 white blood cell count was 107.6 -Has been on multiple rounds of steroids -Neutrophilic, and monocytosis, but primarily lymphocytosis -Likely secondary to underlying CLL -However certainly there is a possibility of underlying leukostasis and associated pulmonary edema -COVID-19 certainly makes diagnosis difficult, in addition would make treatment difficult -ER physician spoke to Dr. Aguillon, advised currently no treatment necessary as hemoglobin and platelet count are within normal limits -We will continue to monitor CBC, monitor for symptomatology Parkinson's disease, continue home Sinemet Hypothyroidism, continue home levothyroxine ROSE on CKD, baseline creatinine unknown, creatinine 1.7, monitor for now Elevated troponins, likely secondary to COVID-19 pneumonia, monitor, telemetry monitoring - Attestations Medical Necessity Statement*: Patient is to be in hospital for management of severe Covid pneumonia. Time Spent in Patient Care: Greater than 35 minutes (>than 50% of time spent in counselling and/or direct pt care on unit) . Coding Level of Care Code Acute Nurse Practitioner [facility] Diagnoses Pneumonia due to COVID-19 virus U07.1; J12.82 Leukocytosis D72.829 Acute kidney injury superimposed on CKD N17.9; N18.9 NSTEMI (non-ST elevated myocardial infarction) I21.4 Acute respiratory failure with hypoxia J96.01
[2021-06-15 17:20] LABS: Glucose Point of Care 200 mg/dL (70-110)
[2021-06-15] MEDS: remdesivir 100 MG in sodium chloride 0.9% (100 ml) 80 ML IV (18:05)
--- NOTE | 2021-06-15 18:14 | PC.NURSE ---
Spoke to Bijal, patients daughter. Patient moving to ICU
[2021-06-15] MEDS: vancomycin 1,500 MG/300 ML PIGGYBACK 200 MG IV (22:15)
[2021-06-16] VITALS (14 sets, daily range): BP systolic 115–121; BP diastolic 65–72; PULSE 62–98; RESP 14–21; TEMP 36.4–36.7; O2SAT 88–96
[2021-06-16] MEDS: piperacillin-tazobactam 3.375 GM in sodium chloride 0.9% (plus) 100 ML IV ×3 (04:31→20:56)
[2021-06-16] MEDS: levothyroxine 100 mcg Tablet PO (04:32)
[2021-06-16 05:17] LABS: Hematocrit 39.4 % (37.0-47.0); Hemoglobin 10.9 g/dL (11.5-15.3); Lymphocytes % 95.8 %; Mean Corpuscular HGB Conc 27.7 g/dL (30.0-36.0); Mean Corpuscular Hemoglobin 27.9 pg (28.0-34.0); Mean Corpuscular Volume 100.8 fl (81-99); Mean Platelet Volume 10.6 fL (7.4-10.4); Monocytes # 0.8 10^3/uL (0.2-0.9); Monocytes % 0.5 %; Neutrophils # 5.85 10^3/uL (1.8-7.7); Neutrophils % 3.5 %; Nucleated Red Blood Cells % 0 %; Platelet Count 171 10^3/cmm (130-400); Red Blood Count 3.91 10^6/uL (4.1-5.3)
[2021-06-16 05:25] LABS: INR 1.49 (0.8-1.2)
[2021-06-16 05:28] LABS: D Dimer 1.04 ug/mIFEU (0-0.59)
[2021-06-16 05:35] LABS: Lymphocytes # 159.5 10^3/uL (0.8-4.8); Slide Review Slide Review Perform
[2021-06-16 05:38] LABS: NT Pro B Type Natriuretic Pept 828 pg/mL (0-450); Procalcitonin 0.31 ng/mL (0-0.5)
[2021-06-16 05:40] LABS: White Blood Count 166.5 10^3/uL (4.0-10.0)
[2021-06-16 05:50] LABS: Alanine Aminotransferase 6 U/L (0-33); Albumin Level 2.9 g/dL (3.5-5.2); Alkaline Phosphatase 63 IU/L (35-105); Anion Gap 17.7 (5-19); Aspartate Amino Transferase 25 U/L (0-32); Blood Urea Nitrogen 45 mg/dL (8-23); C Reactive Protein 155.4 mg/L (0.0-4.9); Carbon Dioxide 25 mmol/L (22-29); Chloride 103 mmol/L (98-107); Creatine Phosphokinase 29 U/L (26-192); Globulin 2.2 g/dL (1.3-4.6); Glucose 110 mg/dL (65-115); Magnesium 2.3 mg/dL (1.7-2.3); Osmolality Calculated 306 mOsm/kg (285-295); Potassium 3.7 mmol/L (3.5-5.1); Sodium 142 mmol/L (136-145); Total Bilirubin 0.4 mg/dL (0.15-1.2); Total Protein 5.1 g/dL (6.6-8.7)
--- NOTE | 2021-06-16 06:26 | PC.PHAR ---
PT IS FROM [facility]-MEDICATIONS ENTERED ARE MEDS FROM THE PTS [facility]
[2021-06-16] MEDS: ipratropium-albuterol 3 mL Neb INHALATION ×4 (08:12→22:08)
[2021-06-16] MEDS: budesonide 0.5 mg/2 mL Neb INHALATION ×2 (08:12→22:07)
[2021-06-16] MEDS: dexamethasone 10 mg/mL INJ 6 MG IVP (09:52)
[2021-06-16] MEDS: ascorbic acid 500 mg Tablet PO ×2 (09:53→18:33)
[2021-06-16] MEDS: zinc gluconate 50 mg Tablet PO (09:53)
[2021-06-16] MEDS: carbidopa-levodopa ER 50-200mg Tablet 1 EACH PO ×2 (09:53→18:34)
[2021-06-16] MEDS: famotidine 20 mg Tablet PO ×2 (09:53→18:33)
[2021-06-16] MEDS: cholecalciferol (vitamin D3) 1,000 unit Tablet 1000 UNIT PO (09:53)
[2021-06-16 14:13] LABS: Miscellaneous Test See Scanned Lab Rpt
--- NOTE | 2021-06-16 15:07 | PM.PN ---
Subjective Subjective: Patient was seen and examined this morning, says she is feeling better , currently she is requiring 50% FiO2 And has mostly maintain saturation greater than 90%. Serum creatinine is slightly worsened today, as well as elevation in BUN. Likely secondary to diuresis. We will hold on Lasix today.Continue to monitor kidney function. Medications: Medication Review Details: Generic Name Dose Route Start Last Admin Trade Name Liya PRN Reason Stop Dose Admin Albuterol/Ipratrop ium 3 ml 06/14/21 08:00 06/14/21 08:06 Ipratropium-Albu terol 3 Ml Neb INHALATION 3 ml QID.RESPIRATORY S CH Administration Ascorbic Acid 500 mg 06/14/21 09:00 06/14/21 09:50 Ascorbic Acid 50 0 Mg Tablet PO 500 mg BID TREVOR Administration Budesonide 0.5 mg 06/14/21 08:00 06/14/21 08:06 Budesonide 0.5 M g/2 Ml Neb INHALATION 0.5 mg BID.RESPIRATORY S CH Administration Carbidopa/Levodopa 1 each 06/14/21 09:00 06/14/21 09:49 Carbidopa-Levodo pa Er 50-200mg Tab let PO 1 each BID TREVOR Administration Dexamethasone 6 mg 06/14/21 08:00 06/14/21 09:50 Dexamethasone 10 Mg/Ml Inj IVP 6 mg Q24H TREVOR Administration Famotidine 20 mg 06/14/21 09:00 06/14/21 09:50 Famotidine 20 Mg Tablet PO 20 mg BID TREVOR Administration Gabapentin 200 mg 06/14/21 09:00 06/14/21 09:49 Gabapentin 100 M g Capsule PO 200 mg TID TREVOR Administration Piperacillin Sod/T azobactam 100 mls @ 25 mls/ hr 06/14/21 06:00 06/14/21 05:37 Sod 3.375 gm/ So dium Chloride IV 12.5 mls/hr Q8H TREVOR Administration Protocol Levothyroxine Sodi um 100 mcg 06/14/21 06:00 06/14/21 05:36 Levothyroxine 10 0 Mcg Tablet PO 100 mcg QAM TREVOR Administration Vitamin D 1,000 unit 06/14/21 09:00 06/14/21 09:51 Cholecalciferol (Vitamin D3) 1,000 Unit Tablet PO Not Given DAILY TREVOR Zinc Gluconate 50 mg 06/14/21 09:00 06/14/21 09:49 Zinc Gluconate 5 0 Mg Tablet PO 50 mg DAILY TREVOR Administration Vitals/I&O/Wt Last Vital Signs Temp 97.5 F L 06/16/21 04:00 Pulse 73 06/16/21 11:32 Resp 18 06/16/21 11:32 BP 120/72 06/16/21 08:00 Pulse Ox 91 06/16/21 11:32 06/16/21 06/16/21 06/16/21 06:59 14:59 22:59 Intake Total 800 / 1080 100 / 100 Output Total 1300 / 2800 Balance -500 / -1720 100 / 100 Physical Exam Const: COMMON NORMALS: patient oriented x3 HENMT: COMMON NORMALS: normocephalic, atraumatic, hearing grossly normal bilaterally and external ears normal HEAD & SCALP: normocephalic and atraumatic EXTERNAL EAR: Yes external ears normal Eye: COMMON NORMALS: no scleral icterus GENERAL EYE: appearance normal, both eyes and all related structures Chest: COMMONS NORMALS: normal inspection of the chest and normal palpation of entire chest wall CHEST: Yes Symmetrical chest wall rise Resp: EFFORT & INSPECTION: Yes symmetric chest movement OTHER: Minimal bilateral crackles present dominantly at the bases. Cardio: COMMON NORMALS: regular rate, regular rhythm, S1 normal heart sound present, S2 normal heart sound present, No gallops present (Cardio), No murmurs present (Cardio), No rub (Cardio) and Peripheral pulses 2+ throughout RATE: regular rate RHYTHM: regular rhythm HEART SOUNDS: S1 normal heart sound present and S2 normal heart sound present PERIPHERAL PULSES: Peripheral pulses 2+ throughout GI: COMMON NORMALS: Normal to inspection, nondistended, normoactive bowel sounds present, Soft to palpation, non-tender, No hepatosplenomegaly present and no masses AUSCULTATION: Yes normoactive bowel sounds PALPATION: Yes Soft to palpation and Yes No hepatosplenomegaly present RECTAL EXAM: deferred Extremity: COMMON NORMALS: no clubbing, cyanosis or edema and no pedal edema Neuro: COMMON NORMALS: patient oriented x3 Urinary Catheter Management: Quezada: Cath Placed During This Visit: yes Reason for Continuing Indwelling Catheter: Other Urinary Catheter Date of Insertion: 06/15/21 Urinary Catheter Time of Insertion: 02:30 Data : 06/16/21 05:07 06/16/21 05:07 A&P Assessment and plan (1) Pneumonia due to COVID-19 virus: Status: Acute (2) Leukocytosis: Status: Acute (3) Acute kidney injury superimposed on CKD: Status: Acute (4) NSTEMI (non-ST elevated myocardial infarction): Status: Acute (5) Acute respiratory failure with hypoxia: Status: Acute Plan # Acute hypoxic respiratory failure secondary to COVID-19 pneumonia -Sputum cultures, blood cultures, urine bacterial antigens -Monitor respiratory status, -Remdesivir day 1 of , GFR roughly 30, monitor -Decadron day 1 of -S/p 1 dose of tocilizumab ( 06/15 ) -Vitamin C, zinc, vitamin D - ipratropium, budesonide -D-dimer elevated, has a personal history of DVTs and PEs, cannot do CT angiogram given elevated creatinine of 1.7, will do venous ultrasound for DVT, -On Therapeutic Lovenox -Chest x-ray shows bilateral pulmonary reticular and groundglass opacities, does have elevated leukocytosis, likely secondary to CLL, will start broad-spectrum antibiotic therapy vancomycin, Zosyn -Incentive spirometer, flutter valve -On therapeutic Lovenox Leukocytosis -WBC 191.18, 05/13/2021 white blood cell count was 107.6 -Has been on multiple rounds of steroids -Neutrophilic, and monocytosis, but primarily lymphocytosis -Likely secondary to underlying CLL -However certainly there is a possibility of underlying leukostasis and associated pulmonary edema -COVID-19 certainly makes diagnosis difficult, in addition would make treatment difficult -ER physician spoke to Dr. Aguillon, advised currently no treatment necessary as hemoglobin and platelet count are within normal limits -We will continue to monitor CBC, monitor for symptomatology Parkinson's disease, continue home Sinemet Hypothyroidism, continue home levothyroxine ROSE on CKD, baseline creatinine unknown, creatinine 1.7, monitor for now Elevated troponins, likely secondary to COVID-19 pneumonia, monitor, telemetry monitoring - Attestations Medical Necessity Statement*: Patient is still in hospital for management of respiratory failure secondary to Covid pneumonia. 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
[2021-06-16] MEDS: remdesivir 100 MG in sodium chloride 0.9% (100 ml) 80 ML IV (18:34)
[2021-06-17] VITALS (15 sets, daily range): BP systolic 110–144; BP diastolic 56–71; PULSE 73–102; RESP 14–20; TEMP 36.4–36.7; O2SAT 90–100
[2021-06-17] MEDS: enoxaparin 120 mg/0.8 mL Syringe 110 MG SUBCUT ×2 (00:43→21:54)
[2021-06-17] MEDS: levothyroxine 100 mcg Tablet PO (04:45)
[2021-06-17] MEDS: piperacillin-tazobactam 3.375 GM in sodium chloride 0.9% (plus) 100 ML IV ×3 (04:45→21:54)
[2021-06-17 05:38] LABS: Platelet Count 175 10^3/cmm (130-400)
[2021-06-17] MEDS: budesonide 0.5 mg/2 mL Neb INHALATION ×2 (07:34→20:11)
[2021-06-17] MEDS: ipratropium-albuterol 3 mL Neb INHALATION ×4 (07:34→20:11)
[2021-06-17 09:03] LABS: Eosinophils # 0.1 10^3/uL (0.0-0.8); Eosinophils % 0.1 %; Hematocrit 39.2 % (37.0-47.0); Hemoglobin 10.9 g/dL (11.5-15.3); Mean Corpuscular HGB Conc 27.8 g/dL (30.0-36.0); Mean Corpuscular Hemoglobin 27.4 pg (28.0-34.0); Mean Corpuscular Volume 98.5 fl (81-99); Mean Platelet Volume 10.5 fL (7.4-10.4); Monocytes # 1.1 10^3/uL (0.2-0.9); Monocytes % 0.7 %; Neutrophils % 3.1 %; Nucleated Red Blood Cells % 0 %; Platelet Count 171 10^3/cmm (130-400); Red Blood Count 3.98 10^6/uL (4.1-5.3)
[2021-06-17 09:28] LABS: Lymphocytes # 153.7 10^3/uL (0.8-4.8); Slide Review Slide Review Perform
[2021-06-17 09:30] LABS: Alanine Aminotransferase 21 U/L (0-33); Albumin Level 2.7 g/dL (3.5-5.2); Alkaline Phosphatase 61 IU/L (35-105); Blood Urea Nitrogen 47 mg/dL (8-23); Calcium 8.8 mg/dL (8.5-10.5); Carbon Dioxide 25 mmol/L (22-29); Chloride 105 mmol/L (98-107); Glucose 110 mg/dL (65-115); Osmolality Calculated 305 mOsm/kg (285-295); Sodium 141 mmol/L (136-145); Total Bilirubin 0.4 mg/dL (0.15-1.2); Total Protein 4.7 g/dL (6.6-8.7); White Blood Count 160.1 10^3/uL (4.0-10.0)
[2021-06-17 09:35] LABS: Anion Gap 15.2 (5-19); Aspartate Amino Transferase 26 U/L (0-32); Potassium 4.2 mmol/L (3.5-5.1)
[2021-06-17] MEDS: zinc gluconate 50 mg Tablet PO (10:19)
[2021-06-17] MEDS: cholecalciferol (vitamin D3) 1,000 unit Tablet 1000 UNIT PO (10:19)
[2021-06-17] MEDS: dexamethasone 10 mg/mL INJ 6 MG IVP (10:19)
[2021-06-17] MEDS: carbidopa-levodopa ER 50-200mg Tablet 1 EACH PO ×2 (10:19→18:38)
[2021-06-17] MEDS: ascorbic acid 500 mg Tablet PO ×2 (10:19→18:38)
[2021-06-17] MEDS: famotidine 20 mg Tablet PO ×2 (10:19→18:38)
--- NOTE | 2021-06-17 11:14 | PC.SOCIAL ---
IMM Update Pg. 2 of IMM updated and reviewed with patient who verbalized understanding. Copy provided. Attempted to reach family and unable to at this time.
--- NOTE | 2021-06-17 11:46 | XR_ITS ---
WS: [id number] Portable AP upright chest, 06/17/2021 Clinical Data: pna Comparison: Portable chest, 06/15/2021. Findings: Bilateral patchy pulmonary opacities remain the same. The heart is at the upper limits of n ormal. No nodules or masses are seen. The aortic arch and descending thoracic aorta show calcification and tortuosity. XR/XR chest 1V portable [id number] Impression: 1. No change in patchy bilateral pulmonary opacities. 2. Atherosclerosis and cardiomegaly.
[2021-06-17] MEDS: FUROsemide 10 mg/mL SDV 2mL 20 MG IVP (14:34)
--- NOTE | 2021-06-17 15:43 | P.PN_ITS ---
Subjective Subjective: Patient was seen and examined this morning, states she is feeling okay, continue to require close to 50% FiO2, a.m. chest x-ray: Has not shown any significant improvement. Her other vitals and labs have been reviewed. Medications: Medication Review Details: Generic Name Dose Route Start Last Admin Trade Name Liya PRN Reason Stop Dose Admin Albuterol/Ipratrop ium 3 ml 06/14/21 08:00 06/14/21 08:06 Ipratropium-Albu terol 3 Ml Neb INHALATION 3 ml QID.RESPIRATORY S [facility] Administration Ascorbic Acid 500 mg 06/14/21 09:00 06/14/21 09:50 Ascorbic Acid 50 0 Mg Tablet PO 500 mg BID TREVOR Administration Budesonide 0.5 mg 06/14/21 08:00 06/14/21 08:06 Budesonide 0.5 M g/2 Ml Neb INHALATION 0.5 mg BID.RESPIRATORY S CH Administration Carbidopa/Levodopa 1 each 06/14/21 09:00 06/14/21 09:49 Carbidopa-Levodo pa Er 50-200mg Tab let PO 1 each BID TREVOR Administration Dexamethasone 6 mg 06/14/21 08:00 06/14/21 09:50 Dexamethasone 10 Mg/Ml Inj IVP 6 mg Q24H TREVOR Administration Famotidine 20 mg 06/14/21 09:00 06/14/21 09:50 Famotidine 20 Mg Tablet PO 20 mg BID TREVOR Administration Gabapentin 200 mg 06/14/21 09:00 06/14/21 09:49 Gabapentin 100 M g Capsule PO 200 mg TID TREVOR Administration Piperacillin Sod/T azobactam 100 mls @ 25 mls/ hr 06/14/21 06:00 06/14/21 05:37 Sod 3.375 gm/ So dium Chloride IV 12.5 mls/hr Q8H TREVOR Administration Protocol Levothyroxine Sodi um 100 mcg 06/14/21 06:00 06/14/21 05:36 Levothyroxine 10 0 Mcg Tablet PO 100 mcg QAM TREVOR Administration Vitamin D 1,000 unit 06/14/21 09:00 06/14/21 09:51 Cholecalciferol (Vitamin D3) 1,000 Unit Tablet PO Not Given DAILY TREVOR Zinc Gluconate 50 mg 06/14/21 09:00 06/14/21 09:49 Zinc Gluconate 5 0 Mg Tablet PO 50 mg DAILY TREVOR Administration Vitals/I&O/Wt Last Vital Signs Temp 98.1 F 06/17/21 08:00 Pulse 81 06/17/21 15:00 Resp 18 06/17/21 15:00 BP 129/71 06/17/21 08:00 Pulse Ox 94 06/17/21 15:00 06/17/21 06/17/21 06/17/21 06:59 14:59 22:59 Intake Total 647.708 / 1477.708 100 / 100 Output Total 1000 / 1000 Balance -352.292 / 477.708 100 / 100 Physical Exam Const: COMMON NORMALS: patient oriented x3 HENMT: COMMON NORMALS: normocephalic, atraumatic, hearing grossly normal bilaterally and external ears normal HEAD & SCALP: normocephalic and atraumatic EXTERNAL EAR: Yes external ears normal Eye: COMMON NORMALS: no scleral icterus GENERAL EYE: appearance normal, both eyes and all related structures Chest: COMMONS NORMALS: normal inspection of the chest and normal palpation of entire chest wall CHEST: Yes Symmetrical chest wall rise Resp: EFFORT & INSPECTION: Yes symmetric chest movement OTHER: Minimal bilateral crackles present dominantly at the bases. Cardio: COMMON NORMALS: regular rate, regular rhythm, S1 normal heart sound present, S2 normal heart sound present, No gallops present (Cardio), No murmurs present (Cardio), No rub (Cardio) and Peripheral pulses 2+ throughout RATE: regular rate RHYTHM: regular rhythm HEART SOUNDS: S1 normal heart sound present and S2 normal heart sound present PERIPHERAL PULSES: Peripheral pulses 2+ throughout GI: COMMON NORMALS: Normal to inspection, nondistended, normoactive bowel sounds present, Soft to palpation, non-tender, No hepatosplenomegaly present and no masses AUSCULTATION: Yes normoactive bowel sounds PALPATION: Yes Soft to palpation and Yes No hepatosplenomegaly present RECTAL EXAM: deferred Extremity: COMMON NORMALS: no clubbing, cyanosis or edema and no pedal edema Neuro: COMMON NORMALS: patient oriented x3 Urinary Catheter Management: Quezada: Cath Placed During This Visit: yes Reason for Continuing Indwelling Catheter: Other Urinary Catheter Date of Insertion: 06/15/21 Urinary Catheter Time of Insertion: 02:30 Data : 06/17/21 08:28 06/17/21 08:28 A&P Assessment and plan (1) Pneumonia due to COVID-19 virus: Status: Acute (2) Leukocytosis: Status: Acute (3) Acute kidney injury superimposed on CKD: Status: Acute (4) NSTEMI (non-ST elevated myocardial infarction): Status: Acute (5) Acute respiratory failure with hypoxia: Status: Acute Plan # Acute hypoxic respiratory failure secondary to COVID-19 pneumonia -Sputum cultures, blood cultures, urine bacterial antigens -Monitor respiratory status, -Remdesivir day 1 of 5, GFR roughly 30, monitor -Decadron day 1 of 5 -S/p 1 dose of tocilizumab ( 06/15 ) -Vitamin C, zinc, vitamin D - ipratropium, budesonide -D-dimer elevated, has a personal history of DVTs and PEs, cannot do CT angiogram given elevated creatinine of 1.7, will do venous ultrasound for DVT, -On Therapeutic Lovenox -Chest x-ray shows bilateral pulmonary reticular and groundglass opacities, does have elevated leukocytosis, likely secondary to CLL, will start broad-spectrum antibiotic therapy vancomycin, Zosyn -Incentive spirometer, flutter valve -On therapeutic Lovenox Leukocytosis -WBC 191.18, 05/13/2021 white blood cell count was 107.6 -Has been on multiple rounds of steroids -Neutrophilic, and monocytosis, but primarily lymphocytosis -Likely secondary to underlying CLL -However certainly there is a possibility of underlying leukostasis and associat ed pulmonary edema -COVID-19 certainly makes diagnosis difficult, in addition would make treatment difficult -ER physician spoke to Dr. Aguillon, advised currently no treatment necessary as hemoglobin and platelet count are within normal limits -We will continue to monitor CBC, monitor for symptomatology Parkinson's disease, continue home Sinemet Hypothyroidism, continue home levothyroxine ROSE on CKD, baseline creatinine unknown, creatinine 1.7, monitor for now Elevated troponins, likely secondary to COVID-19 pneumonia, monitor, telemetry monitoring - Attestations Medical Necessity Statement*: Patient is to the hospital for management of Covid pneumonia. Coding Level of Care Code Acute Helix Coil Winder for [facility] Fwd Exam Comprehensive Diagnoses Pneumonia due to COVID-19 virus U07.1; J12.82 Leukocytosis D72.829 Acute kidney injury superimposed on CKD N17.9; N18.9 NSTEMI (non-ST elevated myocardial infarction) I21.4 Acute respiratory failure with hypoxia J96.01
[2021-06-17] MEDS: remdesivir 100 MG in sodium chloride 0.9% (100 ml) 80 ML IV (18:39)
[2021-06-17 21:19] LABS: Glucose Point of Care 149 mg/dL (70-110)
[2021-06-18] VITALS (22 sets, daily range): BP systolic 136–166; BP diastolic 57–80; PULSE 80–98; RESP 16–28; TEMP 36.3–36.8; O2SAT 91–96
[2021-06-18] MEDS: levothyroxine 100 mcg Tablet PO (05:13)
[2021-06-18] MEDS: piperacillin-tazobactam 3.375 GM in sodium chloride 0.9% (plus) 100 ML IV ×3 (05:13→21:26)
[2021-06-18 06:46] LABS: Glucose Point of Care 114 mg/dL (70-110)
[2021-06-18 07:43] LABS: Basophils # 0.1 10^3/uL (0.0-0.1); Eosinophils # 0.2 10^3/uL (0.0-0.8); Eosinophils % 0.1 %; Hematocrit 40.2 % (37.0-47.0); Hemoglobin 11.5 g/dL (11.5-15.3); Lymphocytes % 95.7 %; Mean Corpuscular HGB Conc 28.6 g/dL (30.0-36.0); Mean Corpuscular Hemoglobin 27.8 pg (28.0-34.0); Mean Corpuscular Volume 97.3 fl (81-99); Mean Platelet Volume 10.9 fL (7.4-10.4); Monocytes # 1.5 10^3/uL (0.2-0.9); Monocytes % 0.8 %; Neutrophils # 6.12 10^3/uL (1.8-7.7); Neutrophils % 3.2 %; Nucleated Red Blood Cells % 0 %; Platelet Count 193 10^3/cmm (130-400); Red Blood Count 4.13 10^6/uL (4.1-5.3); Red Cell Distribution Width 18.3 % (12.1-15.1)
[2021-06-18 07:56] LABS: D Dimer 0.87 ug/mIFEU (0-0.59)
[2021-06-18 08:01] LABS: Alanine Aminotransferase 10 U/L (0-33); Alkaline Phosphatase 72 IU/L (35-105); Aspartate Amino Transferase 26 U/L (0-32); Blood Urea Nitrogen 49 mg/dL (8-23); C Reactive Protein 37.7 mg/L (0.0-4.9); Calcium 8.5 mg/dL (8.5-10.5); Carbon Dioxide 26 mmol/L (22-29); Chloride 110 mmol/L (98-107); Erythrocyte Sedimentation Rate 25 mm/hr (0-15); Ferritin 409 ng/mL (15-150); Globulin 2.1 g/dL (1.3-4.6); Glucose 122 mg/dL (65-115); Osmolality Calculated 314 mOsm/kg (285-295); Sodium 145 mmol/L (136-145); Total Bilirubin 0.4 mg/dL (0.15-1.2); Total Protein 5.1 g/dL (6.6-8.7)
[2021-06-18 08:02] LABS: Anion Gap 14.3 (5-19); Lactate Dehydrogenase 338 U/L (135-214); Potassium 5.3 mmol/L (3.5-5.1)
[2021-06-18 08:23] LABS: Lymphocytes # 184.3 10^3/uL (0.8-4.8); Slide Review Slide Review Perform; White Blood Count 192.5 10^3/uL (4.0-10.0)
[2021-06-18] MEDS: ipratropium-albuterol 3 mL Neb INHALATION ×4 (08:46→20:33)
[2021-06-18] MEDS: budesonide 0.5 mg/2 mL Neb INHALATION ×2 (08:46→20:33)
[2021-06-18] MEDS: zinc gluconate 50 mg Tablet PO (09:58)
[2021-06-18] MEDS: carbidopa-levodopa ER 50-200mg Tablet 1 EACH PO ×2 (09:58→18:23)
[2021-06-18] MEDS: gabapentin 100 mg Capsule 200 MG PO ×2 (09:58→14:35)
[2021-06-18] MEDS: ascorbic acid 500 mg Tablet PO ×2 (09:58→18:23)
[2021-06-18] MEDS: cholecalciferol (vitamin D3) 1,000 unit Tablet 1000 UNIT PO (09:58)
[2021-06-18] MEDS: famotidine 20 mg Tablet PO ×2 (09:58→18:23)
[2021-06-18] MEDS: dexamethasone 10 mg/mL INJ 6 MG IVP (10:02)
--- NOTE | 2021-06-18 12:32 | PM.PN ---
Subjective Subjective: Patient was seen and examined this morning, states she is feeling okay, daughter brought her teeth from the long term, she is happy about it, supplemental oxygen requirement is going down, currently she has been transitioned to high flow oxygen through nasal cannula at 11 L/min. Her other vitals and labs have been reviewed. Serum potassium is 5.3: We will closely monitor the patient for possibility of development of tumor lysis syndrome as a complication of CLL. Follow-up serum uric acid , serum phosphorus, currently serum calcium is normal. Medications: Medication Review Details: Generic Name Dose Route Start Last Admin Trade Name Freq PRN Reason Stop Dose Admin Albuterol/Ipratrop ium 3 ml 06/14/21 08:00 06/14/21 08:06 Ipratropium-Albu terol 3 Ml Neb INHALATION 3 ml QID.RESPIRATORY S CH Administration Ascorbic Acid 500 mg 06/14/21 09:00 06/14/21 09:50 Ascorbic Acid 50 0 Mg Tablet PO 500 mg BID TREVOR Administration Budesonide 0.5 mg 06/14/21 08:00 06/14/21 08:06 Budesonide 0.5 M g/2 Ml Neb INHALATION 0.5 mg BID.RESPIRATORY S CH Administration Carbidopa/Levodopa 1 each 06/14/21 09:00 06/14/21 09:49 Carbidopa-Levodo pa Er 50-200mg Tab let PO 1 each BID TREVOR Administration Dexamethasone 6 mg 06/14/21 08:00 06/14/21 09:50 Dexamethasone 10 Mg/Ml Inj IVP 6 mg Q24H TREVOR Administration Famotidine 20 mg 06/14/21 09:00 06/14/21 09:50 Famotidine 20 Mg Tablet PO 20 mg BID TREVOR Administration Gabapentin 200 mg 06/14/21 09:00 06/14/21 09:49 Gabapentin 100 M g Capsule PO 200 mg TID TREVOR Administration Piperacillin Sod/T azobactam 100 mls @ 25 mls/ hr 06/14/21 06:00 06/14/21 05:37 Sod 3.375 gm/ So dium Chloride IV 12.5 mls/hr Q8H TREVOR Administration Protocol Levothyroxine Sodi um 100 mcg 06/14/21 06:00 06/14/21 05:36 Levothyroxine 10 0 Mcg Tablet PO 100 mcg QAM TREVOR Administration Vitamin D 1,000 unit 06/14/21 09:00 06/14/21 09:51 Cholecalciferol (Vitamin D3) 1,000 Unit Tablet PO Not Given DAILY [facility] Zinc Gluconate 50 mg 06/14/21 09:00 06/14/21 09:49 Zinc Gluconate 5 0 Mg Tablet PO 50 mg DAILY TREVOR Administration Vitals/I&O/Wt Last Vital Signs Temp 98.0 F 06/18/21 07:34 Pulse 84 06/18/21 11:40 Resp 18 06/18/21 11:37 BP 166/72 06/18/21 07:34 Pulse Ox 92 06/18/21 11:37 06/17/21 06/18/21 06/18/21 22:59 06:59 14:59 Intake Total 300 / 400 200 / 600 220 / 220 Output Total 300 / 300 Balance 300 / 400 -100 / 300 220 / 220 Physical Exam Const: COMMON NORMALS: patient oriented x3 HENMT: COMMON NORMALS: normocephalic, atraumatic, hearing grossly normal bilaterally and external ears normal HEAD & SCALP: normocephalic and atraumatic EXTERNAL EAR: Yes external ears normal Eye: COMMON NORMALS: no scleral icterus GENERAL EYE: appearance normal, both eyes and all related structures Chest: COMMONS NORMALS: normal inspection of the chest and normal palpation of entire chest wall CHEST: Yes Symmetrical chest wall rise Resp: EFFORT & INSPECTION: Yes symmetric chest movement OTHER: Minimal bilateral crackles present dominantly at the bases. Cardio: COMMON NORMALS: regular rate, regular rhythm, S1 normal heart sound present, S2 normal heart sound present, No gallops present (Cardio), No murmurs present (Cardio), No rub (Cardio) and Peripheral pulses 2+ throughout RATE: regular rate RHYTHM: regular rhythm HEART SOUNDS: S1 normal heart sound present and S2 normal heart sound present PERIPHERAL PULSES: Peripheral pulses 2+ throughout GI: COMMON NORMALS: Normal to inspection, nondistended, normoactive bowel sounds present, Soft to palpation, non-tender, No hepatosplenomegaly present and no masses AUSCULTATION: Yes normoactive bowel sounds PALPATION: Yes Soft to palpation and Yes No hepatosplenomegaly present RECTAL EXAM: deferred Extremity: COMMON NORMALS: no clubbing, cyanosis or edema and no pedal edema Neuro: COMMON NORMALS: patient oriented x3 Urinary Catheter Management: Quezada: Cath Placed During This Visit: yes Reason for Continuing Indwelling Catheter: Other Urinary Catheter Date of Insertion: 06/15/21 Urinary Catheter Time of Insertion: 02:30 Data : 06/18/21 07:19 06/18/21 07:19 A&P Assessment and plan (1) Pneumonia due to COVID-19 virus: Status: Acute (2) Leukocytosis: Status: Acute (3) Acute kidney injury superimposed on CKD: Status: Acute (4) NSTEMI (non-ST elevated myocardial infarction): Status: Acute (5) Acute respiratory failure with hypoxia: Status: Acute Plan # Acute hypoxic respiratory failure secondary to COVID-19 pneumonia -Sputum cultures, blood cultures, urine bacterial antigens -Monitor respiratory status, -Remdesivir day 1 of 5, GFR roughly 30, monitor -Decadron day 1 of 5 -S/p 1 dose of tocilizumab ( 06/15 ) -Vitamin C, zinc, vitamin D - ipratropium, budesonide -D-dimer elevated, has a personal history of DVTs and PEs, cannot do CT angiogram given elevated creatinine of 1.7, will do venous ultrasound for DVT, -On Therapeutic Lovenox -Chest x-ray shows bilateral pulmonary reticular and groundglass opacities, does have elevated leukocytosis, likely secondary to CLL, will start broad-spectrum antibiotic therapy vancomycin, Zosyn -Incentive spirometer, flutter valve -On therapeutic Lovenox #Hyperkalemia: Currently serum potassium is 5.3, Leukocytosis -WBC 191.18, 05/13/2021 white blood cell count was 107.6 -Has been on multiple rounds of steroids -Neutrophilic, and monocytosis, but primarily lymphocytosis -Likely secondary to underlying CLL -However certainly there is a possibility of underlying leukostasis and associated pulmonary edema -COVID-19 certainly makes diagnosis difficult, in addition would make treatment difficult -ER physician spoke to Dr. Aguillon, advised currently no treatment necessary as hemoglobin and platelet count are within normal limits -We will continue to monitor CBC, monitor for symptomatology Parkinson's disease, continue home Sinemet Hypothyroidism, continue home levothyroxine ROSE on CKD, baseline creatinine unknown, creatinine 1.7, monitor for now Elevated troponins, likely secondary to COVID-19 pneumonia, monitor, telemetry monitoring - Attestations Medical Necessity Statement*: Patient is still in hospital for management of Covid pneumonia. Coding Level of Care Code Acute Nurse Recruiter for [facility] Fwd Exam Comprehensive Diagnoses Pneumonia due to COVID-19 virus U07.1; J12.82 Leukocytosis D72.829 Acute kidney injury superimposed on CKD N17.9; N18.9 NSTEMI (non-ST elevated myocardial infarction) I21.4 Acute respiratory failure with hypoxia J96.01
[2021-06-18] MEDS: sodium chloride 0.9% 1,000 ML 50 ML IV (18:24)
[2021-06-18] MEDS: enoxaparin 120 mg/0.8 mL Syringe 110 MG SUBCUT (22:50)
[2021-06-19] VITALS (19 sets, daily range): BP systolic 135–165; BP diastolic 64–84; PULSE 60–85; RESP 16–24; TEMP 36.6–37.1; O2SAT 86–96
[2021-06-19 05:10] LABS: Basophils # 0.1 10^3/uL (0.0-0.1); Eosinophils # 0.2 10^3/uL (0.0-0.8); Eosinophils % 0.1 %; Hematocrit 38.4 % (37.0-47.0); Hemoglobin 10.6 g/dL (11.5-15.3); Lymphocytes % 95.3 %; Mean Corpuscular HGB Conc 27.6 g/dL (30.0-36.0); Mean Corpuscular Hemoglobin 27.3 pg (28.0-34.0); Mean Platelet Volume 10.8 fL (7.4-10.4); Monocytes # 1.4 10^3/uL (0.2-0.9); Monocytes % 0.8 %; Neutrophils # 6.47 10^3/uL (1.8-7.7); Neutrophils % 3.6 %; Nucleated Red Blood Cells % 0 %; Platelet Count 197 10^3/cmm (130-400); Red Blood Count 3.88 10^6/uL (4.1-5.3); Red Cell Distribution Width 18.4 % (12.1-15.1)
[2021-06-19 05:26] LABS: Erythrocyte Sedimentation Rate 11 mm/hr (0-15)
[2021-06-19] MEDS: levothyroxine 100 mcg Tablet PO (05:29)
[2021-06-19 05:33] LABS: D Dimer 0.82 ug/mIFEU (0-0.59)
[2021-06-19] MEDS: piperacillin-tazobactam 3.375 GM in sodium chloride 0.9% (100 ml) 100 ML IV (05:43)
[2021-06-19 05:45] LABS: Alanine Aminotransferase < 5 U/L (0-33); Albumin Level 2.8 g/dL (3.5-5.2); Alkaline Phosphatase 68 IU/L (35-105); Anion Gap 13.1 (5-19); Aspartate Amino Transferase 30 U/L (0-32); Blood Urea Nitrogen 44 mg/dL (8-23); C Reactive Protein 19.5 mg/L (0.0-4.9); Calcium 8.6 mg/dL (8.5-10.5); Carbon Dioxide 26 mmol/L (22-29); Chloride 113 mmol/L (98-107); Ferritin 360 ng/mL (15-150); Globulin 1.6 g/dL (1.3-4.6); Glucose 120 mg/dL (65-115); Osmolality Calculated 318 mOsm/kg (285-295); Phosphorus 2.6 mg/dL (2.5-4.5); Potassium 4.1 mmol/L (3.5-5.1); Sodium 148 mmol/L (136-145); Total Bilirubin 0.4 mg/dL (0.15-1.2); Total Protein 4.4 g/dL (6.6-8.7)
[2021-06-19 06:17] LABS: Lymphocytes # 174.1 10^3/uL (0.8-4.8)
[2021-06-19 06:18] LABS: Slide Review Slide Review Perform; White Blood Count 182.7 10^3/uL (4.0-10.0)
[2021-06-19] MEDS: budesonide 0.5 mg/2 mL Neb INHALATION ×2 (07:53→19:41)
[2021-06-19] MEDS: ipratropium-albuterol 3 mL Neb INHALATION ×4 (07:53→19:41)
--- NOTE | 2021-06-19 08:01 | PM.PN ---
Subjective Subjective: Patient was seen and examined this morning, supplemental oxygen requirement is going down. Currently she is slowly progressing towards her baseline oxygen requirement. Hyperkalemia has corrected, Serum uric acid is normal, serum phosphorus is normal, serum calcium is normal. Medications: Medication Review Details: Generic Name Dose Route Start Last Admin Trade Name Liya PRN Reason Stop Dose Admin Albuterol/Ipratrop ium 3 ml 06/14/21 08:00 06/14/21 08:06 Ipratropium-Albu terol 3 Ml Neb INHALATION 3 ml QID.RESPIRATORY S CH Administration Ascorbic Acid 500 mg 06/14/21 09:00 06/14/21 09:50 Ascorbic Acid 50 0 Mg Tablet PO 500 mg BID TREVOR Administration Budesonide 0.5 mg 06/14/21 08:00 06/14/21 08:06 Budesonide 0.5 M g/2 Ml Neb INHALATION 0.5 mg BID.RESPIRATORY S CH Administration Carbidopa/Levodopa 1 each 06/14/21 09:00 06/14/21 09:49 Carbidopa-Levodo pa Er 50-200mg Tab let PO 1 each BID TREVOR Administration Dexamethasone 6 mg 06/14/21 08:00 06/14/21 09:50 Dexamethasone 10 Mg/Ml Inj IVP 6 mg Q24H TREVOR Administration Famotidine 20 mg 06/14/21 09:00 06/14/21 09:50 Famotidine 20 Mg Tablet PO 20 mg BID TREVOR Administration Gabapentin 200 mg 06/14/21 09:00 06/14/21 09:49 Gabapentin 100 M g Capsule PO 200 mg TID TREVOR Administration Piperacillin Sod/T azobactam 100 mls @ 25 mls/ hr 06/14/21 06:00 06/14/21 05:37 Sod 3.375 gm/ So dium Chloride IV 12.5 mls/hr Q8H TREVOR Administration Protocol Levothyroxine Sodi um 100 mcg 06/14/21 06:00 06/14/21 05:36 Levothyroxine 10 0 Mcg Tablet PO 100 mcg QAM TREVOR Administration Vitamin D 1,000 unit 06/14/21 09:00 06/14/21 09:51 Cholecalciferol (Vitamin D3) 1,000 Unit Tablet PO Not Given DAILY TREVOR Zinc Gluconate 50 mg 06/14/21 09:00 06/14/21 09:49 Zinc Gluconate 5 0 Mg Tablet PO 50 mg DAILY TREVOR Administration Vitals/I&O/Wt Last Vital Signs Temp 97.9 F 06/19/21 07:52 Pulse 83 06/19/21 07:55 Resp 20 H 06/19/21 07:55 BP 165/84 06/19/21 07:52 Pulse Ox 93 06/19/21 07:58 06/18/21 06/19/21 06/19/21 22:59 06:59 14:59 Intake Total 260 / 600 550 / 1150 Output Total 750 / 750 200 / 950 Balance -490 / -150 350 / 200 Physical Exam Const: COMMON NORMALS: patient oriented x3 HENMT: COMMON NORMALS: normocephalic, atraumatic, hearing grossly normal bilaterally and external ears normal HEAD & SCALP: normocephalic and atraumatic EXTERNAL EAR: Yes external ears normal Eye: COMMON NORMALS: no scleral icterus GENERAL EYE: appearance normal, both eyes and all related structures Chest: COMMONS NORMALS: normal inspection of the chest and normal palpation of entire chest wall CHEST: Yes Symmetrical chest wall rise Resp: EFFORT & INSPECTION: Yes symmetric chest movement OTHER: Minimal bilateral crackles present dominantly at the bases. Cardio: COMMON NORMALS: regular rate, regular rhythm, S1 normal heart sound present, S2 normal heart sound present, No gallops present (Cardio), No murmurs present (Cardio), No rub (Cardio) and Peripheral pulses 2+ throughout RATE: regular rate RHYTHM: regular rhythm HEART SOUNDS: S1 normal heart sound present and S2 normal heart sound present PERIPHERAL PULSES: Peripheral pulses 2+ throughout GI: COMMON NORMALS: Normal to inspection, nondistended, normoactive bowel sounds present, Soft to palpation, non-tender, No hepatosplenomegaly present and no masses AUSCULTATION: Yes normoactive bowel sounds PALPATION: Yes Soft to palpation and Yes No hepatosplenomegaly present RECTAL EXAM: deferred Extremity: COMMON NORMALS: no clubbing, cyanosis or edema and no pedal edema Neuro: COMMON NORMALS: patient oriented x3 Urinary Catheter Management: Quezada: Cath Placed During This Visit: yes Reason for Continuing Indwelling Catheter: Other Urinary Catheter Date of Insertion: 06/15/21 Urinary Catheter Time of Insertion: 02:30 Data : 06/19/21 04:40 06/19/21 04:40 Micro: Microbiology 06/13/21 19:45 Blood Culture - Final Blood NO GROWTH AFTER 5 DAYS 06/13/21 19:45 Blood Culture - Final Blood NO GROWTH AFTER 5 DAYS A&P Assessment and plan (1) Pneumonia due to COVID-19 virus: Status: Acute (2) Leukocytosis: Status: Acute (3) Acute kidney injury superimposed on CKD: Status: Acute (4) NSTEMI (non-ST elevated myocardial infarction): Status: Acute (5) Acute respiratory failure with hypoxia: Status: Acute (6) Hypernatremia: Status: Acute (7) Hyperkalemia: Status: Acute Plan # Acute hypoxic respiratory failure secondary to COVID-19 pneumonia -Sputum cultures, blood cultures, urine bacterial antigens -Monitor respiratory status, -Remdesivir day 1 of , GFR roughly 30, monitor -Decadron day of -S/p 1 dose of tocilizumab ( 06/15 ) -Vitamin C, zinc, vitamin D - ipratropium, budesonide -D-dimer elevated, has a personal history of DVTs and PEs, cannot do CT angiogram given elevated creatinine of 1.7, will do venous ultrasound for DVT, -On Therapeutic Lovenox -Chest x-ray shows bilateral pulmonary reticular and groundglass opacities, does have elevated leukocytosis, likely secondary to CLL, will start broad-spectrum antibiotic therapy vancomycin, Zosyn -Incentive spirometer, flutter valve -On therapeutic Lovenox #Hyperkalemia: Currently serum potassium is 5.3, #Hypernatremia : Currently on D5 water 50 cc an hour Continue to monitor BMP Leukocytosis -WBC 191.18, 05/13/2021 white blood cell count was 107.6 -Has been on multiple rounds of steroids -Neutrophilic, and monocytosis, but primarily lymphocytosis -Likely secondary to underlying CLL -However certainly there is a possibility of underlying leukostasis and associated pulmonary edema -COVID-19 certainly makes diagnosis difficult, in addition would make treatment difficult -ER physician spoke to Dr. Aguillon, advised currently no treatment necessary as hemoglobin and platelet count are within normal limits -We will continue to monitor CBC, monitor for symptomatology Parkinson's disease, continue home Sinemet Hypothyroidism, continue home levothyroxine ROSE on CKD, baseline creatinine unknown, creatinine 1.7, monitor for now Elevated troponins, likely secondary to COVID-19 pneumonia, monitor, telemetry monitoring - Attestations Medical Necessity Statement*: Patient is to be in hospital for management of Covid pneumonia. Coding Level of Care Code Acute Jowl Trimmer for g Fwd Exam Comprehensive Diagnoses Pneumonia due to COVID-19 virus U07.1; J12.82 Leukocytosis D72.829 Acute kidney injury superimposed on CKD N17.9; N18.9 NSTEMI (non-ST elevated myocardial infarction) I21.4 Acute respiratory failure with hypoxia J96.01 Hypernatremia E87.0 Hyperkalemia E87.5
[2021-06-19 09:36] LABS: Lactate Dehydrogenase 333 U/L (135-214)
[2021-06-19] MEDS: gabapentin 100 mg Capsule 200 MG PO (10:21)
[2021-06-19] MEDS: zinc gluconate 50 mg Tablet PO (10:21)
[2021-06-19] MEDS: cholecalciferol (vitamin D3) 1,000 unit Tablet 1000 UNIT PO (10:21)
[2021-06-19] MEDS: famotidine 20 mg Tablet PO ×2 (10:22→17:27)
[2021-06-19] MEDS: ascorbic acid 500 mg Tablet PO ×2 (10:22→17:27)
[2021-06-19] MEDS: dexamethasone 10 mg/mL INJ 6 MG IVP (10:22)
[2021-06-19] MEDS: carbidopa-levodopa ER 50-200mg Tablet 1 EACH PO ×2 (10:23→17:27)
[2021-06-19] MEDS: dextrose 5% 1,000 ML 50 ML IV (10:35)
--- NOTE | 2021-06-19 13:31 | PC.SOCIAL ---
IMM Updated Updated pt on IMM. No questions voiced. Provided pt a copy. Initialed, dated, & timed copy in chart.
[2021-06-19] MEDS: piperacillin-tazobactam 3.375 GM in sodium chloride 0.9% (plus) 50 ML IV ×2 (15:30→21:45)
--- NOTE | 2021-06-19 15:43 | PC.NURSE ---
Spoke with Dr. Walsh about gabapentin. Dr. Walsh stated to hold gabapentin
[2021-06-19] MEDS: lanolin oint 7 gm 1 APPLIC TOPICAL (21:46)
[2021-06-19] MEDS: enoxaparin 120 mg/0.8 mL Syringe 110 MG SUBCUT (22:12)
[2021-06-19] MEDS: acetaminophen 325 mg Tablet 650 MG PO (23:51)
[2021-06-20] VITALS (19 sets, daily range): BP systolic 147–158; BP diastolic 68–77; PULSE 66–88; RESP 16–32; TEMP 36.3–37.1; O2SAT 90–94
[2021-06-20 04:58] LABS: Basophils # 0.1 10^3/uL (0.0-0.1); Basophils % 0.1 %; Eosinophils # 0.3 10^3/uL (0.0-0.8); Eosinophils % 0.1 %; Hematocrit 38.9 % (37.0-47.0); Hemoglobin 10.6 g/dL (11.5-15.3); Lymphocytes % 95.2 %; Mean Corpuscular HGB Conc 27.2 g/dL (30.0-36.0); Mean Corpuscular Hemoglobin 27.1 pg (28.0-34.0); Mean Corpuscular Volume 99.5 fl (81-99); Mean Platelet Volume 10.6 fL (7.4-10.4); Monocytes # 1.8 10^3/uL (0.2-0.9); Monocytes % 0.9 %; Neutrophils # 6.79 10^3/uL (1.8-7.7); Neutrophils % 3.5 %; Nucleated Red Blood Cells % 0 %; Platelet Count 201 10^3/cmm (130-400); Red Blood Count 3.91 10^6/uL (4.1-5.3); Red Cell Distribution Width 18.6 % (12.1-15.1)
[2021-06-20 05:11] LABS: D Dimer 1.08 ug/mIFEU (0-0.59)
[2021-06-20 05:12] LABS: Erythrocyte Sedimentation Rate 5 mm/hr (0-15)
[2021-06-20 05:19] LABS: Alanine Aminotransferase 20 U/L (0-33); Albumin Level 2.7 g/dL (3.5-5.2); Alkaline Phosphatase 69 IU/L (35-105); Blood Urea Nitrogen 42 mg/dL (8-23); C Reactive Protein 10.7 mg/L (0.0-4.9); Calcium 8.3 mg/dL (8.5-10.5); Carbon Dioxide 26 mmol/L (22-29); Chloride 114 mmol/L (98-107); Ferritin 389 ng/mL (15-150); Globulin 1.8 g/dL (1.3-4.6); Glucose 127 mg/dL (65-115); Osmolality Calculated 312 mOsm/kg (285-295); Sodium 145 mmol/L (136-145); Total Bilirubin 0.5 mg/dL (0.15-1.2); Total Protein 4.5 g/dL (6.6-8.7)
[2021-06-20 05:20] LABS: Aspartate Amino Transferase 40 U/L (0-32)
[2021-06-20 05:21] LABS: Lactate Dehydrogenase 395 U/L (135-214)
[2021-06-20 05:35] LABS: Lymphocytes # 186.2 10^3/uL (0.8-4.8); Slide Review Slide Review Perform
[2021-06-20] MEDS: levothyroxine 100 mcg Tablet PO (05:35)
[2021-06-20] MEDS: piperacillin-tazobactam 3.375 GM in sodium chloride 0.9% (plus) 50 ML IV ×3 (05:35→22:51)
[2021-06-20 05:36] LABS: White Blood Count 195.6 10^3/uL (4.0-10.0)
[2021-06-20] MEDS: dextrose 5% 1,000 ML 50 ML IV (05:41)
[2021-06-20] MEDS: ipratropium-albuterol 3 mL Neb INHALATION ×4 (07:57→20:15)
[2021-06-20] MEDS: budesonide 0.5 mg/2 mL Neb INHALATION ×2 (07:57→20:15)
--- NOTE | 2021-06-20 08:56 | PM.PN ---
Subjective Subjective: Patient was seen and examined this morning, she was complaining of bilateral lower extremity pain, currently requiring 8 to 9 L supplemental oxygen. Hyperkalemia was again noted today: She was given regular insulin, dextrose. Hypernatremia has corrected Medications: Medication Review Details: Generic Name Dose Route Start Last Admin Trade Name Liya PRN Reason Stop Dose Admin Albuterol/Ipratrop ium 3 ml 06/14/21 08:00 06/14/21 08:06 Ipratropium-Albu terol 3 Ml Neb INHALATION 3 ml QID.RESPIRATORY S CH Administration Ascorbic Acid 500 mg 06/14/21 09:00 06/14/21 09:50 Ascorbic Acid 50 0 Mg Tablet PO 500 mg BID TREVOR Administration Budesonide 0.5 mg 06/14/21 08:00 06/14/21 08:06 Budesonide 0.5 M g/2 Ml Neb INHALATION 0.5 mg BID.RESPIRATORY S CH Administration Carbidopa/Levodopa 1 each 06/14/21 09:00 06/14/21 09:49 Carbidopa-Levodo pa Er 50-200mg Tab let PO 1 each BID TREVOR Administration Dexamethasone 6 mg 06/14/21 08:00 06/14/21 09:50 Dexamethasone 10 Mg/Ml Inj IVP 6 mg Q24H TREVOR Administration Famotidine 20 mg 06/14/21 09:00 06/14/21 09:50 Famotidine 20 Mg Tablet PO 20 mg BID TREVOR Administration Gabapentin 200 mg 06/14/21 09:00 06/14/21 09:49 Gabapentin 100 M g Capsule PO 200 mg TID TREVOR Administration Piperacillin Sod/T azobactam 100 mls @ 25 mls/ hr 06/14/21 06:00 06/14/21 05:37 Sod 3.375 gm/ So dium Chloride IV 12.5 mls/hr Q8H TREVOR Administration Protocol Levothyroxine Sodi um 100 mcg 06/14/21 06:00 06/14/21 05:36 Levothyroxine 10 0 Mcg Tablet PO 100 mcg QAM TREVOR Administration Vitamin D 1,000 unit 06/14/21 09:00 06/14/21 09:51 Cholecalciferol (Vitamin D3) 1,000 Unit Tablet PO Not Given DAILY TREVOR Zinc Gluconate 50 mg 06/14/21 09:00 06/14/21 09:49 Zinc Gluconate 5 0 Mg Tablet PO 50 mg DAILY TREVOR Administration Vitals/I&O/Wt Last Vital Signs Temp 97.4 F L 06/20/21 07:40 Pulse 77 06/20/21 08:09 Resp 26 H 06/20/21 08:09 BP 158/71 06/20/21 07:40 Pulse Ox 91 06/20/21 08:09 06/19/21 06/20/21 06/20/21 22:59 06:59 14:59 Intake Total 50 / 5842.243 3559 / 2048.333 Output Total 500 / 500 300 / 800 Balance -450 / 543.333 705 / 1248.333 Physical Exam Const: COMMON NORMALS: patient oriented x3 HENMT: COMMON NORMALS: normocephalic, atraumatic, hearing grossly normal bilaterally and external ears normal HEAD & SCALP: normocephalic and atraumatic EXTERNAL EAR: Yes external ears normal Eye: COMMON NORMALS: no scleral icterus GENERAL EYE: appearance normal, both eyes and all related structures Chest: COMMONS NORMALS: normal inspection of the chest and normal palpation of entire chest wall CHEST: Yes Symmetrical chest wall rise Resp: EFFORT & INSPECTION: Yes symmetric chest movement OTHER: Bilateral crackles present in both the lung field predominantly in the right lung field. Cardio: COMMON NORMALS: regular rate, regular rhythm, S1 normal heart sound present, S2 normal heart sound present, No gallops present (Cardio), No murmurs present (Cardio), No rub (Cardio) and Peripheral pulses 2+ throughout RATE: regular rate RHYTHM: regular rhythm HEART SOUNDS: S1 normal heart sound present and S2 normal heart sound present PERIPHERAL PULSES: Peripheral pulses 2+ throughout GI: COMMON NORMALS: Normal to inspection, nondistended, normoactive bowel sounds present, Soft to palpation, non-tender, No hepatosplenomegaly present and no masses AUSCULTATION: Yes normoactive bowel sounds PALPATION: Yes Soft to palpation and Yes No hepatosplenomegaly present RECTAL EXAM: deferred Extremity: COMMON NORMALS: no clubbing, cyanosis or edema and no pedal edema Neuro: COMMON NORMALS: patient oriented x3 Urinary Catheter Management: Quezada: Cath Placed During This Visit: yes Reason for Continuing Indwelling Catheter: Other Urinary Catheter Date of Insertion: 06/15/21 Urinary Catheter Time of Insertion: 02:30 Data : 06/20/21 04:46 06/20/21 04:46 A&P Assessment and plan (1) Pneumonia due to COVID-19 virus: Status: Acute (2) Leukocytosis: Status: Acute (3) Acute kidney injury superimposed on CKD: Status: Acute (4) NSTEMI (non-ST elevated myocardial infarction): Status: Acute (5) Acute respiratory failure with hypoxia: Status: Acute (6) Hypernatremia: Status: Acute (7) Hyperkalemia: Status: Acute Plan # Acute hypoxic respiratory failure secondary to COVID-19 pneumonia -Sputum cultures, blood cultures, urine bacterial antigens -Monitor respiratory status, -Remdesivir day 1 of 5, GFR roughly 30, monitor -Decadron day 1 of 5 -S/p 1 dose of tocilizumab ( 06/15 ) -Vitamin C, zinc, vitamin D - ipratropium, budesonide -D-dimer elevated, has a personal history of DVTs and PEs, cannot do CT angiogram given elevated creatinine of 1.7, will do venous ultrasound for DVT, -On Therapeutic Lovenox -Chest x-ray shows bilateral pulmonary reticular and groundglass opacities, does have elevated leukocytosis, likely secondary to CLL, will start broad-spectrum antibiotic therapy vancomycin, Zosyn -Incentive spirometer, flutter valve -On therapeutic Lovenox #Hyperkalemia: Currently serum potassium is 6, hyperkalemia cocktail given. We will have to monitor the patient for tumor lysis syndrome. Continue to monitor serum potassium and serum uric acid serum phosphorus and serum calcium. Follow repeat BMP #Hypernatremia : Resolved Was on D5 water 50 cc an hour Continue to monitor BMP Leukocytosis -WBC 191.18, 05/13/2021 white blood cell count was 107.6 -Has been on multiple rounds of steroids -Neutrophilic, and monocytosis, but primarily lymphocytosis -Likely secondary to underlying CLL -However certainly there is a possibility of underlying leukostasis and associated pulmonary edema -COVID-19 certainly makes diagnosis difficult, in addition would make treatment difficult -ER physician spoke to Dr. Aguillon, advised currently no treatment necessary as hemoglobin and platelet count are within normal limits -We will continue to monitor CBC, monitor for symptomatology Parkinson's disease, continue home Sinemet Hypothyroidism, continue home levothyroxine ROSE on CKD, baseline creatinine unknown, creatinine 1.7, monitor for now Elevated troponins, likely secondary to COVID-19 pneumonia, monitor, telemetry monitoring - Attestations Medical Necessity Statement*: Patient needs to be in hospital for management of hyperkalemia, hypernatremia, Covid pneumonia. 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
[2021-06-20] MEDS: zinc gluconate 50 mg Tablet PO (10:03)
[2021-06-20] MEDS: ascorbic acid 500 mg Tablet PO ×2 (10:03→17:32)
[2021-06-20] MEDS: carbidopa-levodopa ER 50-200mg Tablet 1 EACH PO ×2 (10:03→17:32)
[2021-06-20] MEDS: famotidine 20 mg Tablet PO ×2 (10:03→17:32)
[2021-06-20] MEDS: cholecalciferol (vitamin D3) 1,000 unit Tablet 1000 UNIT PO (10:03)
[2021-06-20] MEDS: dexamethasone 10 mg/mL INJ 6 MG IVP (10:04)
[2021-06-20] MEDS: dextrose 50% syringe 50 mL IVP (10:06)
[2021-06-20] MEDS: sodium polystyrene sulfonate 15 gm/60 mL Btl PO (10:09)
[2021-06-20] MEDS: enoxaparin 100 mg/mL Syringe SUBCUT ×2 (11:38→22:52)
[2021-06-20] MEDS: phenol oral Spray 177 mL 3 SPRAY MUCOUS MEM (17:32)
[2021-06-20 19:41] LABS: Blood Urea Nitrogen 38 mg/dL (8-23); Calcium 8.4 mg/dL (8.5-10.5); Carbon Dioxide 23 mmol/L (22-29); Chloride 115 mmol/L (98-107); Glucose 132 mg/dL (65-115); Osmolality Calculated 319 mOsm/kg (285-295); Sodium 149 mmol/L (136-145)
[2021-06-20 20:07] LABS: Anion Gap 14.7 (5-19); Potassium 3.7 mmol/L (3.5-5.1)
[2021-06-20] MEDS: acetaminophen 325 mg Tablet 650 MG PO (22:52)
[2021-06-20] MEDS: benzonatate 100 mg Capsule PO (22:52)
[2021-06-21] VITALS (17 sets, daily range): BP systolic 152–181; BP diastolic 60–86; PULSE 74–86; RESP 17–24; TEMP 36.4–37.3; O2SAT 67–94
[2021-06-21 04:58] LABS: Basophils # 0.1 10^3/uL (0.0-0.1); Eosinophils # 0.3 10^3/uL (0.0-0.8); Eosinophils % 0.1 %; Hematocrit 39.2 % (37.0-47.0); Hemoglobin 10.9 g/dL (11.5-15.3); Lymphocytes % 95.9 %; Mean Corpuscular HGB Conc 27.8 g/dL (30.0-36.0); Mean Corpuscular Hemoglobin 27.9 pg (28.0-34.0); Mean Corpuscular Volume 100.3 fl (81-99); Mean Platelet Volume 11.1 fL (7.4-10.4); Monocytes # 1.4 10^3/uL (0.2-0.9); Monocytes % 0.6 %; Neutrophils # 6.69 10^3/uL (1.8-7.7); Neutrophils % 3.2 %; Nucleated Red Blood Cells % 0 %; Platelet Count 202 10^3/cmm (130-400); Red Blood Count 3.91 10^6/uL (4.1-5.3); Red Cell Distribution Width 19.8 % (12.1-15.1)
[2021-06-21 05:19] LABS: Slide Review Slide Review Perform
[2021-06-21 05:20] LABS: Anion Gap 12.1 (5-19); Blood Urea Nitrogen 36 mg/dL (8-23); Calcium 8.6 mg/dL (8.5-10.5); Carbon Dioxide 27 mmol/L (22-29); Chloride 115 mmol/L (98-107); Glucose 112 mg/dL (65-115); Osmolality Calculated 319 mOsm/kg (285-295); Phosphorus 2.8 mg/dL (2.5-4.5); Potassium 4.1 mmol/L (3.5-5.1); Sodium 150 mmol/L (136-145); Uric Acid 4.5 mg/dL (2.4-5.7); White Blood Count 215.8 10^3/uL (4.0-10.0)
[2021-06-21] MEDS: levothyroxine 100 mcg Tablet PO (05:48)
[2021-06-21] MEDS: piperacillin-tazobactam 3.375 GM in sodium chloride 0.9% (plus) 50 ML IV ×2 (05:48→23:39)
[2021-06-21] MEDS: acetaminophen 325 mg Tablet 650 MG PO (05:49)
[2021-06-21] MEDS: budesonide 0.5 mg/2 mL Neb INHALATION ×2 (08:10→20:35)
[2021-06-21] MEDS: ipratropium-albuterol 3 mL Neb INHALATION ×4 (08:10→20:35)
[2021-06-21] MEDS: cholecalciferol (vitamin D3) 1,000 unit Tablet 1000 UNIT PO (08:27)
[2021-06-21] MEDS: famotidine 20 mg Tablet PO (08:27)
[2021-06-21] MEDS: zinc gluconate 50 mg Tablet PO (08:28)
[2021-06-21] MEDS: ascorbic acid 500 mg Tablet PO (08:28)
[2021-06-21] MEDS: carbidopa-levodopa ER 50-200mg Tablet 1 EACH PO (08:28)
[2021-06-21] MEDS: dexamethasone 10 mg/mL INJ 6 MG IVP (08:28)
[2021-06-21] MEDS: sodium chloride 0.9% 1,000 ML 50 ML IV (08:31)
[2021-06-21] MEDS: enoxaparin 100 mg/mL Syringe SUBCUT ×2 (11:00→23:39)
--- NOTE | 2021-06-21 11:21 | PC.SOCIAL ---
IMM Updated Updated pt's family on IMM. No questions voiced. Provided pt a copy. Initialed, dated, & timed copy in chart.
[2021-06-21 11:26] LABS: Glucose Point of Care 140 mg/dL (70-110)
--- NOTE | 2021-06-21 14:23 | P.PN_ITS ---
Subjective Subjective: Patient was seen this morning, she is alert to person, to place, not to time she is forgetful at times, does get confused easily with my questioning she tells me that she is having severe back pain, she would like to get up to the side of the bed, she tells me that she is really does not have an appetite this morning, she has not touched much of her breakfast According to nursing staff, she is voiced to nursing staff that she would just rather I spoke to patient's daughter, discussed patient's overall COVID-19 pneumonia, patient's persistent worsening leukocytosis likely due to underlying CLL, her overall oxygen requirements have decreased to 5 L, presently she continues to have deconditioning, poor appetite, increasing confusion likely second to prolonged hospitalization, she voiced understanding, all questions answered Vitals/I&O/Wt Last Vital Signs Temp 97.5 F L 06/21/21 08:00 Pulse 81 06/21/21 11:55 Resp 20 H 06/21/21 11:55 BP 154/60 06/21/21 11:52 Pulse Ox 93 06/21/21 11:55 06/20/21 06/21/21 06/21/21 22:59 06:59 14:59 Intake Total 340.07 / 750.07 50 / 800.07 Output Total 350 / 350 250 / 600 Balance -9.93 / 400.07 -200 / 200.07 Physical Exam Const: COMMON NORMALS: no acute distress EXAM LIMITATIONS: altered mental status Resp: COMMON NORMALS: normal respiratory effort, No retractions, No use of accessory muscles and clear to auscultation bilaterally AUSCULTATION: clear to auscultation bilaterally Cardio: COMMON NORMALS: regular rate, regular rhythm, S1 normal heart sound present and S2 normal heart sound present RATE: regular rate RHYTHM: regular rhythm HEART SOUNDS: S1 normal heart sound present and S2 normal heart sound present GI: COMMON NORMALS: Normal to inspection, nondistended, normoactive bowel soun ds present, Soft to palpation and non-tender PALPATION: Yes Soft to palpation Extremity: COMMON NORMALS: no pedal edema Urinary Catheter Management: Quezada: Cath Placed During This Visit: yes Reason for Continuing Indwelling Catheter: Other Urinary Catheter Date of Insertion: 06/15/21 Urinary Catheter Time of Insertion: 02:30 Data : 06/21/21 04:30 06/21/21 04:30 A&P Assessment and plan (1) Pneumonia due to COVID-19 virus: Status: Acute (2) Leukocytosis: Status: Acute (3) Acute kidney injury superimposed on CKD: Status: Acute (4) NSTEMI (non-ST elevated myocardial infarction): Status: Acute (5) Acute respiratory failure with hypoxia: Status: Acute (6) Hypernatremia: Status: Acute (7) Hyperkalemia: Status: Acute Plan # Acute hypoxic respiratory failure secondary to COVID-19 pneumonia -Sputum cultures, blood cultures, urine bacterial antigens -Monitor respiratory status, -Remdesivir day 5 of 5, GFR roughly 30, monitor -Decadron day 7 -S/p 1 dose of tocilizumab ( 06/15 ) -Vitamin C, zinc, vitamin D - ipratropium, budesonide -D-dimer elevated, has a personal history of DVTs and PEs, cannot do CT angiogram given elevated creatinine of, repeat venous ultrasound negative for DVT -On Therapeutic Lovenox -Chest x-ray shows bilateral pulmonary reticular and groundglass opacities, does have elevated leukocytosis, likely secondary to CLL, will start broad-spectrum antibiotic continue Zosyn, vancomycin has been discontinued -Incentive spirometer, flutter valve -On therapeutic Lovenox #Hyperkalemia: Resolved. We will have to monitor the patient for tumor lysis syndrome. Continue to monitor serum potassium and serum uric acid serum phosphorus and serum calcium. Follow repeat BMP #Hypernatremia : Persisting Start D5 normal saline Continue to monitor BMP Leukocytosis -WBC to 15.8, 05/13/2021 white blood cell count was 107.6 -Has been on multiple rounds of steroids -Neutrophilic, and monocytosis, but primarily lymphocytosis -Likely secondary to underlying CLL -No associated anemia or thrombocytopenia -Likely due to underlying COVID-19 infection -However certainly there is a possibility of underlying leukostasis and associated pulmonary edema -COVID-19 certainly makes diagnosis difficult, in addition would make treatment difficult -Currently no interventions required for lymphocytosis -We will continue to monitor CBC, monitor for symptomatology Parkinson's disease, continue home Sinemet Hypothyroidism, continue home levothyroxine ROSE on CKD, baseline creatinine unknown, creatinine 1.4, monitor for now Elevated troponins, likely secondary to COVID-19 pneumonia, monitor, telemetry monitoring - Attestations Medical Necessity Statement*: Patient requires hospitalization for COVID-19 pneumonia, deconditioning, alteration in mentation Coding Level of Care 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
--- NOTE | 2021-06-21 15:05 | PC.NURSE ---
Dr. Castro spoke with daughter about patient. Daughter refusing IV antibiotics and all pills at this point. Dr. Castro notified. He said hold.
[2021-06-21] MEDS: morphine 4 mg/mL SDV 1 mL 2 MG IVP ×2 (15:51→20:50)
[2021-06-22] VITALS (12 sets, daily range): BP systolic 143–180; BP diastolic 67–95; PULSE 74–87; RESP 16–20; TEMP 36.4–36.6; O2SAT 90–97
[2021-06-22] MEDS: sodium chloride 0.9% 1,000 ML 50 ML IV (05:09)
[2021-06-22] MEDS: piperacillin-tazobactam 3.375 GM in sodium chloride 0.9% (plus) 50 ML IV (05:10)
[2021-06-22 06:25] LABS: Glucose Point of Care 105 mg/dL (70-110)
[2021-06-22 06:55] LABS: Basophils # 0.1 10^3/uL (0.0-0.1); Eosinophils # 0.2 10^3/uL (0.0-0.8); Eosinophils % 0.1 %; Hematocrit 41.4 % (37.0-47.0); Hemoglobin 11.6 g/dL (11.5-15.3); Lymphocytes % 95.8 %; Mean Corpuscular Hemoglobin 28.1 pg (28.0-34.0); Mean Corpuscular Volume 100.2 fl (81-99); Mean Platelet Volume 10.5 fL (7.4-10.4); Monocytes # 1.3 10^3/uL (0.2-0.9); Monocytes % 0.5 %; Neutrophils # 7.75 10^3/uL (1.8-7.7); Neutrophils % 3.3 %; Nucleated Red Blood Cells % 0 %; Platelet Count 168 10^3/cmm (130-400); Red Blood Count 4.13 10^6/uL (4.1-5.3); Red Cell Distribution Width 20.5 % (12.1-15.1)
[2021-06-22 07:14] LABS: Anion Gap 11.7 (5-19); Blood Urea Nitrogen 29 mg/dL (8-23); Calcium 8.4 mg/dL (8.5-10.5); Carbon Dioxide 26 mmol/L (22-29); Chloride 119 mmol/L (98-107); Glucose 106 mg/dL (65-115); Osmolality Calculated 322 mOsm/kg (285-295); Phosphorus 2.8 mg/dL (2.5-4.5); Potassium 3.7 mmol/L (3.5-5.1); Sodium 153 mmol/L (136-145)
[2021-06-22 07:26] LABS: Uric Acid 3.8 mg/dL (2.4-5.7)
[2021-06-22] MEDS: ipratropium-albuterol 3 mL Neb INHALATION (07:28)
[2021-06-22] MEDS: budesonide 0.5 mg/2 mL Neb INHALATION (07:28)
[2021-06-22 07:41] LABS: Lymphocytes # 226.2 10^3/uL (0.8-4.8); Slide Review Slide Review Perform; White Blood Count 236.1 10^3/uL (4.0-10.0)
[2021-06-22] MEDS: dexamethasone 10 mg/mL INJ 6 MG IVP (08:34)
[2021-06-22] MEDS: morphine 4 mg/mL SDV 1 mL 2 MG IVP (08:35)
--- NOTE | 2021-06-22 09:55 | PC.NURSE ---
Holding PO meds this nurse was told in morning shift report from night nurse that all PO meds were to be held per daughter with OK from Dr. spoke with Dr Castro this AM during his rounding and inquired to this since no nursing note was in pt chart. did confirm to hold all PO meds for pt.
--- NOTE | 2021-06-22 10:32 | PM.DCS ---
Discharge Providers Date of Admission: 06/14/21 00:40 Date of Discharge: June 22, 2021 Attending Provider at Admission: Bahman Castro MD Attending Provider at Discharge: Bahman Castro MD Primary Care Provider: TREVOR Provider Diagnoses at Discharge Discharge Diagnosis (1) Pneumonia due to COVID-19 virus: Status: Acute (2) Leukocytosis: Status: Acute (3) Acute kidney injury superimposed on CKD: Status: Acute (4) NSTEMI (non-ST elevated myocardial infarction): Status: Acute (5) Acute respiratory failure with hypoxia: Status: Acute (6) Hypernatremia: Status: Acute (7) Hyperkalemia: Status: Acute Reason for Visit Reason for Visit: SOB Hospital Course Hospital Course Haritha Shelton is a 85 year old female with a past medical history of chronic lymphocytic leukemia, Parkinson's disease, CKD stage III, history of DVT and PE, history of hypothyroidism, age-related macular degeneration, who presents to [facility] due to shortness of breath, fevers, fatigue, malaise. Patient was admitted to [facility] for acute hypoxic respiratory failure secondary to COVID-19 pneumonia, received 5 days of remdesivir, 8 days of Decadron, 1 dose of Tocilizumab, DuoNeb treatments, her D-dimer is elevated, cannot do a CT angiogram for pulmonary embolism was managed with therapeutic Lovenox, venous ultrasound for negative DVT, management broad-spectrum antibiotic therapy. In terms of her Covid infection, she was weaned down to 5 L, remained afebrile, however had intermittent complaints of shortness of breath, generalized fatigue, malaise, weakness, poor appetite. Patient continued to have complaints of weakness, poor appetite, severe back pain, she was found to have superficial DTI's, treated with repositioning. Due to persistent pain, her desire to be comfortable, her desire to be with God, her desire to not be in pain, decision was made to pursue hospice. Patient was alert to person, not to place, not to time, so she could not make decisions for herself. But after discussion with patient's next of kin, in line with patient's wishes on admission and throughout her hospitalizations, to not do aggressive interventions, patient was transitioned back to the senior care on hospice. Of note she does have an elevated D-dimer, cannot do a CT angiogram to evaluate for pulmonary emboli given her kidney function, and given that she wanted hospice, did not want to have aggressive interventions, and stopped taking medications during her hospitalization as per her and her daughter's wish. I wanted to minimize medications on discharge, minimize medications that could carry significant risks. The risks of anticoagulation including but not limited to GI bleed, outweigh the benefit for possible treatment of pulmonary emboli in haritha. Thus I did not discharge her on anticoagulation. Venous ultrasounds were negative for DVT. Of note patient did have significant leukocytosis on her hospital mission, likely secondary to underlying CLL, not associated anemia or thrombocytopenia, after discussion with Dr. Aguillon, likely leukocytosis elevation is related to COVID-19 infection, no interventions required. Physical Exam Const: COMMON NORMALS: patient oriented x3 EXAM LIMITATIONS: altered mental status GENERAL APPEARANCE: frail appearing OTHER: In pain, complaining of back pain Resp: COMMON NORMALS: normal respiratory effort and clear to auscultation bilaterally AUSCULTATION: clear to auscultation bilaterally Cardio: COMMON NORMALS: regular rate, regular rhythm, S1 normal heart sound present and S2 normal heart sound present RATE: regular rate RHYTHM: regular rhythm HEART SOUNDS: S1 normal heart sound present and S2 normal heart sound present GI: COMMON NORMALS: Normal to inspection, nondistended, normoactive bowel sounds present, Soft to palpation and non-tender PALPATION: Yes Soft to palpation Extremity: COMMON NORMALS: no pedal edema Neuro: COMMON NORMALS: patient oriented x3 Psych: COMMON NORMALS: mental status grossly normal Urinary Catheter Management: Quezada: Cath Placed During This Visit: yes Reason for Continuing Indwelling Catheter: Other Urinary Catheter Date of Insertion: 06/15/21 Urinary Catheter Time of Insertion: 02:30 Discharge Data Studies Completed and Pending Completed Studies During Hospitalization Category Date Time Status XR chest 1V portable [id number] Routine Exams 06/15/21 07:30 Completed XR chest 1V portable [id number] Routine Exams 06/17/21 11:46 Completed XR chest 1V portable [id number] Urgent Exams 06/13/21 18:52 [place] [id number] Routine Ultrasound 06/14/21 00:56 Completed Pending at discharge Category Date Time Status BMP [Basic Metabolic Panel] AM LABS Lab 06/23/21 04:00 Ordered CBC Auto Diff [Complete Blood Count w/Auto] AM LABS Lab 06/23/21 04:00 Ordered COVID [Coronavirus Test [facility]] Routine Lab 06/14/21 00:56 Uncollected Phosphorus AM LABS Lab 06/23/21 04:00 Ordered Sputum Culture and Gram Stain Stat Lab 06/13/21 22:23 Uncollected Uric Acid AM LABS Lab 06/23/21 04:00 Ordered Radiology Impressions Chest X-Ray 06/17/21 11:46 Impression: 1. No change in patchy bilateral pulmonary opacities. 2. Atherosclerosis and cardiomegaly. Laboratory Results WBC 236.1 10^3/uL (4.0-10.0) H* 06/22/21 06:47 RBC 4.13 10^6/uL (4.1-5.3) 06/22/21 06:47 Hgb 11.6 g/dL (11.5-15.3) 06/22/21 06:47 Hct 41.4 % (37.0-47.0) 06/22/21 06:47 MCV 100.2 fl (81-99) H 06/22/21 06:47 MCH 28.1 pg (28.0-34.0) 06/22/21 06:47 MCHC 28.0 g/dL (30.0-36.0) L 06/22/21 06:47 RDW 20.5 % (12.1-15.1) H 06/22/21 06:47 Plt Count 168 10^3/cmm (130-400) 06/22/21 06:47 MPV 10.5 fL (7.4-10.4) H 06/22/21 06:47 Neut % (Auto) 3.3 % 06/22/21 06:47 Lymph % (Auto) 95.8 % 06/22/21 06:47 [place] % (Auto) 0.5 % 06/22/21 06:47 Eos % (Auto) 0.1 % 06/22/21 06:47 Baso % (Auto) 0.0 % 06/22/21 06:47 Neut # (Auto) 7.75 10^3/uL (1.8-7.7) H 06/22/21 06:47 Lymph # (Auto) 226.2 10^3/uL (0.8-4.8) H 06/22/21 06:47 [place] # (Auto) 1.3 10^3/uL (0.2-0.9) H 06/22/21 06:47 Eos # (Auto) 0.2 10^3/uL (0.0-0.8) 06/22/21 06:47 Baso # (Auto) 0.1 10^3/uL (0.0-0.1) 06/22/21 06:47 Nucleated RBC % (auto) 0 % 06/22/21 06:47 Nucleated RBCs # 0.0 /100WBC 06/22/21 06:47 ESR 5 mm/hr (0-15) 06/20/21 04:46 PT 18.30 SECONDS (12.1-14.9) H 06/16/21 05:07 INR 1.49 (0.8-1.2) H 06/16/21 05:07 APTT 26.8 SECONDS (23.9-36.7) 06/14/21 03:10 D-Dimer 1.08 ug/mIFEU (0-0.59) H 06/20/21 04:46 Specimen Type Arterial 06/13/21 19:28 Sample Site Radial, left 06/13/21 19:28 ABG pH 7.48 (7.35-7.45) H 06/13/21 19:28 ABG pCO2 38.5 mmHg (35-45) 06/13/21 19:28 ABG pO2 50.8 mmHg (80.0-100.0) L 06/13/21 19:28 ABG HCO3 28.5 mmol/L (22-26) H 06/13/21 19:28 ABG Base Excess 4.7 mmol/L (-2.0-2.0) H 06/13/21 19:28 Jose De Jesus Test N/a 06/13/21 19:28 Hematocrit 33.9 % (37-47) L 06/13/21 19:28 Hgb O2 Saturation 89.6 % (95-100) L 06/13/21 19:28 Carboxyhemoglobin 0.9 %THgb (0.4-20.1) 06/13/21 19:28 Methemoglobin < 0.0 % (0.4-1.5) L 06/13/21 19:28 Total Hemoglobin 11.1 g/dL (12-16) L 06/13/21 19:28 O2 Delivery Device Nc 06/13/21 19:28 O2 Liters/Min 5.0 % 06/13/21 19:28 Casing Blower ID Nicer2 06/13/21 19:28 Sodium 153 mmol/L (136-145) H 06/22/21 06:47 Potassium 3.7 mmol/L (3.5-5.1) 06/22/21 06:47 Chloride 119 mmol/L (98-107) H 06/22/21 06:47 Carbon Dioxide 26 mmol/L (22-29) 06/22/21 06:47 Anion Gap 11.7 (5-19) 06/22/21 06:47 BUN 29 mg/dL (8-23) H 06/22/21 06:47 Creatinine 1.2 mg/dL (0.5-0.9) H 06/22/21 06:47 GFR Calculation Not Reportable 06/22/21 06:47 Glucose 106 mg/dL (65-115) 06/22/21 06:47 POC Glucose 105 mg/dL (70-110) 06/22/21 06:10 Calculated Osmolality 322 mOsm/kg (285-295) H 06/22/21 06:47 Lactic Acid 1.3 mmol/L (0.5-2.2) 06/13/21 19:45 Uric Acid 3.8 mg/dL (2.4-5.7) 06/22/21 06:47 Calcium 8.4 mg/dL (8.5-10.5) L 06/22/21 06:47 Phosphorus 2.8 mg/dL (2.5-4.5) 06/22/21 06:47 Magnesium 2.3 mg/dL (1.7-2.3) 06/16/21 05:07 Ferritin 389 ng/mL (15-150) H 06/20/21 04:46 Total Bilirubin 0.5 mg/dL (0.15-1.2) 06/20/21 04:46 AST 40 U/L (0-32) H 06/20/21 04:46 ALT 20 U/L (0-33) 06/20/21 04:46 Alkaline Phosphatase 69 IU/L (35-105) 06/20/21 04:46 Lactate Dehydrogenase 395 U/L (135-214) H 06/20/21 04:46 Creatine Kinase 29 U/L (26-192) 06/16/21 05:07 Troponin T Baseline 51 ng/L (0-10) H 06/13/21 19:45 Troponin T 120 Minute 49.88 ng/L (0-10) H 06/13/21 21:49 Delta Troponin T -1.12 ABS# (0-10) L 06/13/21 21:49 Troponin T Hi Sens 6Hr 39.47 ng/L (0-10) H 06/14/21 01:51 Troponin T Hi Sens 6Hr Delta -11.53 ng/L (0-12) L 06/14/21 01:51 C-Reactive Protein 10.7 mg/L (0.0-4.9) H 06/20/21 04:46 NT-Pro-B Natriuret Pep 828 pg/mL (0-450) H 06/16/21 05:07 Total Protein 4.5 g/dL (6.6-8.7) L 06/20/21 04:46 Albumin 2.7 g/dL (3.5-5.2) L 06/20/21 04:46 Globulin 1.8 g/dL (1.3-4.6) 06/20/21 04:46 Procalcitonin 0.31 ng/mL (0-0.5) 06/16/21 05:07 Coronavirus 229E (PCR) Not detected (NOT DETECT) 06/14/21 06:10 Influenza Type A Ag Negative (Negative) 06/14/21 06:10 Influenza Type B Ag Negative (Negative) 06/14/21 06:10 SARS-CoV-2 (PCR) Detected (NOT DETECT) A 06/14/21 06:10 Misc Test Reference See scanned lab rpt 06/14/21 03:10 Vitals Last Vital Signs Temp 97.6 F 06/22/21 04:00 Pulse 82 06/22/21 08:00 Resp 16 06/22/21 08:35 BP 143/67 06/22/21 08:00 Pulse Ox 94 06/22/21 08:00 Discharge Plan Discharge Patient Disposition: Hospice - Medical Facility Condition: Stable Prescriptions: Continued Zyrtec 10 mg Tablet 10 mg PO BEDTIME@20 0RF Sylvia-Tussin DM 10-100 mg/5 mL Liquid 5 - 10 ml PO Q4H PRN (Reason: Congestion) 0RF Zofran 4 mg Tablet 4 mg PO Q8H PRN (Reason: Nausea And Vomiting) 0RF prednisone 20 mg Tablet 20 mg PO DAILY@16 0RF Rx Instructions: for 5 days (start date 06/10/21) Sinemet CR 50-200 mg Tablet Extended Release 1 tab PO QID 0RF Rx Instructions: @08:00,12:00,16:00,20:00 Imodium A-D 2 mg Tablet See Rx Instructions .ROUTE .COMPLEX 0RF Rx Instructions: 2MG PO PRN DIARRHEA MAY HAVE 2MG AFTER EACH LOOSE STOOL NOT TO EXCEED 6 TABS IN 24 HOURS Tylenol 8 Hour 650 mg Tablet Extended Release 650 mg PO Q6H MDD 3000MG PRN (Reason: PAIN IN RIGHT KNEE) 0RF Synthroid 100 mcg Tablet 100 mcg PO DAILY@06 0RF potassium 99 mg Tablet 99 mg PO DAILY@08 0RF Calcium 500 500 mg calcium (1,250 mg) Tablet 500 mg PO DAILY@08 0RF Flovent HFA 44 mcg/actuation Hfa Aerosol Inhaler 2 puff INHALATION BID@08,20 0RF Rx Instructions: administer with spacer oxybutynin chloride 5 mg Tablet Extended Release 24hr 5 mg PO DAILY@07 0RF gabapentin 100 mg Capsule 200 mg PO TID@0630,1200,2000 0RF albuterol sulfate [ProAir HFA] 90 mcg/actuation Hfa Aerosol Inhaler 2 puff INHALATION QID 0RF Rx Instructions: @08:00,12:00,16:00.20:00 Flonase 50 mcg/actuation [place],Suspension 2 spray INTRANASAL BEDTIME@20 0RF Rx Instructions: administer into each nostril Maxitrol 3.5 mg/g-10,000 unit/g-0.1 % Ointment See Rx Instructions .ROUTE .COMPLEX 0RF Rx Instructions: INSTILL 0.25 INCH IN LEFT EYE EVERY 4 HOURS PRN Ocuvite Extra Tablet 2 tab PO BID@08,20 0RF Multivitamins 28 mg iron- 800 mcg Tablet 1 tab PO DAILY@07 0RF Biotene See Rx Instructions .ROUTE .COMPLEX 0RF Rx Instructions: RINSE MOUTH WITH 15ML FOUR TIMES A DAY FOR MOUTH SORENESS @08:00,12:00,16:00,20:00 Vitamin B-12 1 tab PO DAILY@07 0RF Discontinued Ultram 50 mg Tablet 50 mg PO TID@06,12,20 0RF Lasix 20 mg Tablet 20 mg PO DAILY@07 0RF doxycycline hyclate 100 mg tablet 100 mg PO BID@, 0RF Rx Instructions: FOR 5 DAYS (START DATE 06/10/21) Discharge Orders: Discharge Order (Routine); Ordered 06/22/21 Ordered By: Bahman Castro Referrals: [facility] [Other] Discharge Diet: Regular Discharge Activity: Resume usual activity Patient Instructions: Hospice Care (GEN) Activity Restrictions/Additional Instructions: -Discharge to senior care on hospice Discharge Attestations Time Spent in Discharge Care*: less than 30 min Quality Metrics Clinical Quality Measures [ No reported AMI, CVA or VTE this stay] Coding Level of Care Code Acute g [facility] note Diagnoses Pneumonia due to COVID-19 virus U07.1; J12.82 Leukocytosis D72.829 Acute kidney injury superimposed on CKD N17.9; N18.9 NSTEMI (non-ST elevated myocardial infarction) I21.4 Acute respiratory failure with hypoxia J96.01 Hypernatremia E87.0 Hyperkalemia E87.5
[2021-06-22] MEDS: enoxaparin 100 mg/mL Syringe SUBCUT (10:59)
[2021-06-22] MEDS: HYDROmorphone 1 mg/mL INJ 1 mL IVP ×2 (11:13→17:07)
--- NOTE | 2021-06-22 12:26 | PC.NURSE ---
report called to Geoff Burnett LPN at [facility]
== END 2021-06-22 20:23 | disposition hospice, inpatient (51) | DRG 177 ==
LOC: ER 22:52 → MEDSURG 06-14 00:40
PROVIDERS: Internal Medicine; Admitting Provider Family Medicine; Emergency Provider Emergency Medicine; Visit Provider Family Medicine
DX: U07.1 COVID-19 (principal); J12.82 Pneumonia due to coronavirus disease 2019; J96.01 Acute respiratory failure with hypoxia; E87.0 Hyperosmolality and hypernatremia; N17.9 Acute kidney failure, unspecified; D72.829 Elevated white blood cell count, unspecified; G20 Parkinson's disease; N18.30 Chronic kidney disease, stage 3 unspecified; Z86.718 Personal history of other venous thrombosis and embolism; E87.5 Hyperkalemia; E03.9 Hypothyroidism, unspecified; Z66 Do not resuscitate; E11.22 Type 2 diabetes mellitus with diabetic chronic kidney disease; Z85.6 Personal history of leukemia; L89.96 Pressure-induced deep tissue damage of unspecified site
CPT/HCPCS: 36415; 36416; 51702; 71045; 80048; 80053; 80500; 82550; 82728; 82805; 82962; 83605; 83615; 83735; 83880; 84100; 84145; 84484; 84550; 85025; 85049; 85378; 85610; 85651; 85730; 86140; 86403; 87040; 87449; 87635; 87641; 87804; 88184; 88185; 92523; 92526; 92610; 93005; 93970; 94640; 94664; 96365; 96367; 96372; 96375; 97162; 97530; 99285; J1100; J1170; J1644; J1650; J1815; J1940; J2270; J2543; J2930; J3262; J3370; J7030; J7050; J7626